=== PATIENT | male | born 1960 | race Caucasian/White ===

== ENCOUNTER 2022-03-07 09:12 | Inpatient (IN) | payer MEDICARE, MEDICAID, SELFPAY ==
[2022-03-07] VITALS (11 sets, daily range): BP systolic 110–138; BP diastolic 80–100; PULSE 89–117; RESP 18–26; TEMP 36.2–36.9; O2SAT 91–97; BMI 21.2
--- NOTE | 2022-03-07 09:40 | XR_ITS ---
WS: [id number] XR chest 1V portable [id number] REASON FOR EXAM: sob FINDINGS: Hyperexpanded lung field suggesting obstructive lung disease. Hiatal hernia. Normal heart size and thoracic aorta. Calcified granulomatous disease bilaterally. Compared to the previous examination of 01/03/2018, the multiple vague densities are not identified on the current study. No definite acute pulmonary parenchymal pleural abnormality is identified. XR/XR chest 1V portable [id number] IMPRESSION: Probable obstructive lung disease without acute abnormality.
--- NOTE | 2022-03-07 10:55 | ECG_ITS ---
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 Measurements Intervals [place] Rate: 102 P: 88 GA: 227 QRS: -59 QRSD: 106 T: 59 QT: 334 QTc: 435 Interpretive Statements SINUS TACHYCARDIA WITH FIRST DEGREE AV BLOCK LEFT AXIS DEVIATION [QRS AXIS < -30] LOW QRS VOLTAGE IN EXTREMITY LEADS [QRS DEFLECTION < 0.5 mV IN LIMB LEADS] INFERIOR MYOCARDIAL INFARCTION , PROBABLY OLD [40+ ms Q WAVE AND/OR ST/T ABNORMALITY IN II/aVF] No previous ECG available for comparison Electronically Signed On 03-07-2022 21:37:19 CDT by Sun Benavides M.D. [email or web address] memorial [email or web address]/store/OM/[id number]
--- NOTE | 2022-03-07 10:56 | W.ED.SOB ---
HPI - SOB/Dyspnea General: Chief Complaint: Shortness of Breath/Dyspnea Stated Complaint: SOB/weakness/no appetite/ Time Seen by Provider: 03/07/22 10:49 Source: patient Mode of arrival: ambulatory Limitations: no limitations History of Present Illness: HPI Narrative: Patient is a nice 61-year-old male who presents to ED today with a main complaint of dyspnea over the past 4 days. Patient tells me he does have a history of COPD that he normally treats with Combivent and Advair. He states he normally does not require oxygen. He states over the past 4 days he has noticed profound dyspnea worse with even minimal exertion. He states he is unable to eat or sleep secondary to the work of breathing. He does not describe any chest pains or any other pain/discomfort. He has not noticed any swelling to his lower extremities. Patient is an every day smoker. He states apart from the COPD he is fairly healthy . He does describe a productive cough. No hemoptysis. MD elicited complaint: shortness of breath Pertinent past history: COPD Onset (ago): day(s) Timing: constant Severity: moderate Exacerbating factors: exertion Relieving factors: nothing Known history of: COPD Associated symptoms: Reports chest congestion and dizziness; Deny abdominal pain, chest pain, fever(s), hemoptysis, lightheadedness, nausea, palpitations, syncope or vomiting Treatment prior to arrival: none Related Data: Home oxygen amount: none Review of Systems Const: Reports: chills; Denies: fever(s), body aches, fatigue or malaise Eyes: Denies: change in vision or blurry vision ENMT: Denies: throat pain, odynophagia, nasal discharge or nasal congestion Card: Reports: dyspnea on exertion; Denies: chest pain, palpitations, irregular heart rhythm, edema, swelling of feet/ankles, lightheadedness, syncope, pre-syncope, leg pain with exertion or acrocyanosis Resp: Reports: dyspnea, productive cough and chest congestion; Denies: wheezing, stridor, pain on inspiration or hemoptysis GI: Denies: abdominal pain, nausea, vomiting, heartburn or diarrhea : Denies: flank pain, difficulty urinating or dysuria Musc: Denies: neck pain, back pain or joint pain Skin/Breast: Denies: rash Neuro: Reports: dizziness; Denies: headache(s), numbness in extremities, weakness in extremities, sensory changes, lack of coordination, difficulty walking or confusion PFSH ED PFSH: Medical History COPD (chronic obstructive pulmonary disease) CVA (cerebral vascular accident) Depression GERD (gastroesophageal reflux disease) OA (osteoarthritis) Smoking addiction Family History (Updated 03/07/22 @ 14:07 by Dav Spencer MD) Other Suicide Social History (Updated 03/07/22 @ 14:09 by Dav Spencer MD) Smoking and tobacco status: current every day smoker Physical Exam Const: COMMON NORMALS: patient oriented x3, no limitations and alert GENERAL APPEARANCE: cooperative and in distress (visibly short of breath) ORIENTATION/CONSCIOUSNESS: Yes awake, Yes oriented to person, Yes oriented to place and Yes oriented to time HENMT: COMMON NORMALS: normocephalic and atraumatic HEAD & SCALP: normal to inspection, normocephalic and atraumatic Chest: COMMONS NORMALS: normal inspection of the chest and normal palpation of entire chest wall Resp: EFFORT & INSPECTION: Yes tachypneic, Yes labored and Yes uses accessory muscles AUSCULTATION: rhonchi (throughout all [place]) Cardio: COMMON NORMALS: regular rhythm RATE: tachycardic RHYTHM: regular rhythm GI: COMMON NORMALS: Normal to inspection, nondistended, normoactive bowel sounds present, Soft to palpation and non-tender PALPATION: Yes Soft to palpation Extremity: COMMON NORMALS: normal to inspection, capillary refill normal, no joint enlargement, no clubbing, cyanosis or edema, no calf tenderness and no pedal edema GENERAL: Yes normal exam except as noted Neuro: BAL COMA SCALE: document GCS findings [place] coma scale eye opening: Spontaneous [place] coma scale verbal response: Orientated [place] coma scale motor response: Obey commands Bal coma scale total score: 15 COMMON NORMALS: patient oriented x3, moves all extremities, no focal motor deficits and no sensory deficits noted SENSORIUM/ORIENTATION: Yes alert, Yes oriented to person, Yes oriented to place and Yes oriented to time Skin: COMMON NORMALS: no rashes or lesions noted GENERAL SKIN EXAM: no rashes or lesions noted Course Consultations: Consultation #1: Dr. Spencer-accepts for observation Vital Signs: Vital signs: Vital Signs Temperature 97.6 F 03/07/22 11:13 Pulse Rate 112 H 03/07/22 13:38 Respiratory Rate 22 H 03/07/22 13:38 Blood Pressure 110/80 03/07/22 13:38 Pulse Oximetry 95 03/07/22 13:38 MDM - SOB/Dyspnea Medical Decision Making Patient here with progressive dyspnea over the past 4 days to the point where patient states he is hardly able to get out of bed and walk around his home without becoming profoundly short of breath. Patient has remained tachycardic and tachypneic throughout his stay. He is not hypoxic. CXR shows COPD. He does have a mild white count at 12.4 with an elevated lactate at 2.5. D-dimer was elevated thus CTA imaging was obtained which showed scattered bilateral lung nodules that could be postinflammatory versus early metastatic lesions along with marked emphysema. Patient is an every day smoker. He feels slightly better after IV Solu-Medrol and DuoNeb here however lung sounds still with scattered diffuse wheezes/rhonchi and he visibly still has increased work of breathing. I spoke to Dr. Parekh who recommends admission. I spoke to Dr. Spencer who was agreeable to observation. I have started patient on IV Levaquin. Lab Data : 03/07/22 11:05 03/07/22 11:05 Labs/Radiology: Radiology Impressions Chest X-Ray 03/07/22 09:40 IMPRESSION: Probable obstructive lung disease without acute abnormality. Chest CTA 03/07/22 12:52 IMPRESSION: 1. No pulmonary embolism. 2. Scattered nodules throughout both lungs with tree-in-bud airspace disease and mild spiculations. May be postinflammatory or early metastatic lesions. The largest nodule measures 7 mm in the RIGHT lower lobe. Recommend follow-up chest CT in 3-4 months to confirm stability or improvement. 3. Marked emphysema. Laboratory Results WBC 12.4 10^3/uL (4.0-10.0) H 03/07/22 11:05 RBC 5.96 10^6/uL (4.1-5.3) H 03/07/22 11:05 Hgb 17.6 g/dL (11.7-16.6) H 03/07/22 11:05 Hct 52.9 % (42.0-52.0) H 03/07/22 11:05 MCV 88.8 fl (80-94) 03/07/22 11:05 MCH 29.5 pg (28.0-34.0) 03/07/22 11:05 MCHC 33.3 g/dL (30.0-36.0) 03/07/22 11:05 RDW 13.9 % (12.1-15.1) 03/07/22 11:05 Plt Count 340 10^3/cmm (130-400) 03/07/22 11:05 MPV 10.8 fL (7.4-10.4) H 03/07/22 11:05 Neut % (Auto) 78.9 % 03/07/22 11:05 Lymph % (Auto) 12.9 % 03/07/22 11:05 [place] % (Auto) 7.4 % 03/07/22 11:05 Eos % (Auto) 0.2 % 03/07/22 11:05 Baso % (Auto) 0.2 % 03/07/22 11:05 Neut # (Auto) 9.76 10^3/uL (1.8-7.7) H 03/07/22 11:05 Lymph # (Auto) 1.6 10^3/uL (0.8-4.8) 03/07/22 11:05 [place] # (Auto) 0.9 10^3/uL (0.2-0.9) 03/07/22 11:05 Eos # (Auto) 0.0 10^3/uL (0.0-0.8) 03/07/22 11:05 Baso # (Auto) 0.0 10^3/uL (0.0-0.1) 03/07/22 11:05 Nucleated RBC % (auto) 0 % 03/07/22 11:05 Nucleated RBCs # 0.0 /100WBC 03/07/22 11:05 D-Dimer 1.11 ug/mIFEU (0-0.59) H 03/07/22 12:20 Specimen Type Arterial 03/07/22 10:56 Sample Site Radial, right 03/07/22 10:56 ABG pH 7.44 (7.35-7.45) 03/07/22 10:56 ABG pCO2 31.7 mmHg (35-45) L 03/07/22 10:56 ABG pO2 76.4 mmHg (80.0-100.0) L 03/07/22 10:56 ABG HCO3 21.4 mmol/L (22-26) L 03/07/22 10:56 ABG O2 Saturation 94.7 03/07/22 10:56 ABG Base Excess -1.7 mmol/L (-2.0-2.0) 03/07/22 10:56 Cholo Test Pos 03/07/22 10:56 A-a O2 Gradient 4.2 mmHg (5-10) L 03/07/22 10:56 Hematocrit 51.7 % (42-52) 03/07/22 10:56 Hgb O2 Saturation 94.2 % (95-100) L 03/07/22 10:56 Carboxyhemoglobin < 0.0 %THgb (0.4-20.1) L 03/07/22 10:56 Methemoglobin 0.7 % (0.4-1.5) 03/07/22 10:56 Total Hemoglobin 16.9 g/dL (14-18) 03/07/22 10:56 Sodium 135.0 mmol/L (131-143) 03/07/22 10:56 Potassium 4.1 mmol/L (3.5-5.0) 03/07/22 10:56 Glucose 109.0 mg/dL (70-115) 03/07/22 10:56 Ionized Calcium 1.2 mmol/L (1.1-1.4) 03/07/22 10:56 O2 Delivery Device Room air 03/07/22 10:56 FiO2 21.0 % 03/07/22 10:56 Assistant Women'S Basketball Coach ID Ed 03/07/22 10:56 Sodium 132 mmol/L (136-145) L 03/07/22 11:05 Potassium 4.6 mmol/L (3.5-5.1) 03/07/22 11:05 Chloride 90 mmol/L (98-107) L 03/07/22 11:05 Carbon Dioxide 23 mmol/L (22-29) 03/07/22 11:05 Anion Gap 23.6 (5-19) H 03/07/22 11:05 BUN 31 mg/dL (8-23) H 03/07/22 11:05 Creatinine 1.1 mg/dL (0.7-1.2) 03/07/22 11:05 GFR Calculation 67.6 mL/min (90-130) L 03/07/22 11:05 Glucose 105 mg/dL (65-115) 03/07/22 11:05 Calculated Osmolality 281 mOsm/kg (285-295) L 03/07/22 11:05 Lactic Acid 2.5 mmol/L (0.5-2.2) H 03/07/22 11:05 Lactic Acid (Sepsis) 2.1 mmol/L (0.5-2.2) 03/07/22 13:52 Calcium 10.3 mg/dL (8.5-10.5) 03/07/22 11:05 Total Bilirubin 0.5 mg/dL (0.15-1.2) 03/07/22 11:05 AST 24 U/L (0-40) 03/07/22 11:05 ALT 14 U/L (0-41) 03/07/22 11:05 Alkaline Phosphatase 59 IU/L (40-130) 03/07/22 11:05 Troponin T Baseline 20 ng/L (0-15) H 03/07/22 11:05 Troponin T 120 Minute 17.93 ng/L (0-15) H 03/07/22 12:54 Delta Troponin T -2.07 ABS# (0-10) L 03/07/22 12:54 NT-Pro-B Natriuret Pep 801 pg/mL (0-125) H 03/07/22 11:05 Total Protein 9.5 g/dL (6.6-8.7) H 03/07/22 11:05 Albumin 4.4 g/dL (3.5-5.2) 03/07/22 11:05 Globulin 5.1 g/dL (1.3-4.6) H 03/07/22 11:05 Procalcitonin 0.43 ng/mL (0-0.5) 03/07/22 11:05 Discharge Plan Discharge Patient Disposition: Placed in Observation Clinical Impression: Acute exacerbation of chronic obstructive airways disease, Current smoker Coding Level of Care Code ED Chain Hoist Operator for Nikitag Fwd Exam Comprehensive
[2022-03-07 11:07] LABS: ABG PCO2 31.7 mmHg (35-45); ABG PH Result 7.44 (7.35-7.45); Alveolar-Arterial Oxygen Gradi 4.2 mmHg (5-10); Arterial Blood Gas Hematocrit 51.7 % (42-52); Base Excess ABG -1.7 mmol/L (-2.0-2.0); Blood Gas Allen Test Pos; Blood Gas Operator Identificat ED; Blood Gas Sample Site Radial, right; Blood Gas Sample Type Arterial; Carboxyhemoglobin < 0.0 %THgb (0.4-20.1); HCO3 ABG 21.4 mmol/L (22-26); HGB O2 Sat 94.2 % (95-100); Ionized Calcium Level - ABG 1.2 mmol/L (1.1-1.4); Methemoglobin 0.7 % (0.4-1.5); Oxygen Device ROOM AIR; Oxygen Saturation ABG 94.7; PO2 ABG 76.4 mmHg (80.0-100.0); Potassium Level - ABG 4.1 mmol/L (3.5-5.0); Total Hemoglobin 16.9 g/dL (14-18)
[2022-03-07] MEDS: ipratropium-albuterol 3 mL Neb INHALATION ×3 (11:10→20:01)
[2022-03-07 11:32] LABS: Basophils % 0.2 %; Eosinophils % 0.2 %; Hematocrit 52.9 % (42.0-52.0); Hemoglobin 17.6 g/dL (11.7-16.6); Lymphocytes # 1.6 10^3/uL (0.8-4.8); Lymphocytes % 12.9 %; Mean Corpuscular HGB Conc 33.3 g/dL (30.0-36.0); Mean Corpuscular Hemoglobin 29.5 pg (28.0-34.0); Mean Corpuscular Volume 88.8 fl (80-94); Mean Platelet Volume 10.8 fL (7.4-10.4); Monocytes # 0.9 10^3/uL (0.2-0.9); Monocytes % 7.4 %; Neutrophils # 9.76 10^3/uL (1.8-7.7); Neutrophils % 78.9 %; Nucleated Red Blood Cells % 0 %; Platelet Count 340 10^3/cmm (130-400); Red Blood Count 5.96 10^6/uL (4.1-5.3); Red Cell Distribution Width 13.9 % (12.1-15.1); White Blood Count 12.4 10^3/uL (4.0-10.0)
[2022-03-07 12:02] LABS: Troponin(5th) Baseline 20 ng/L (0-15)
[2022-03-07 12:03] LABS: Lactic Sepsis W/Reflex 2.5 mmol/L (0.5-2.2)
[2022-03-07 12:14] LABS: NT Pro B Type Natriuretic Pept 801 pg/mL (0-125); Procalcitonin 0.43 ng/mL (0-0.5)
[2022-03-07 12:25] LABS: Alanine Aminotransferase 14 U/L (0-41); Albumin Level 4.4 g/dL (3.5-5.2); Alkaline Phosphatase 59 IU/L (40-130); Anion Gap 23.6 (5-19); Aspartate Amino Transferase 24 U/L (0-40); Blood Urea Nitrogen 31 mg/dL (8-23); Calcium 10.3 mg/dL (8.5-10.5); Carbon Dioxide 23 mmol/L (22-29); Chloride 90 mmol/L (98-107); Globulin 5.1 g/dL (1.3-4.6); Glomerular Filtration Rate 67.6 mL/min (90-130); Glucose 105 mg/dL (65-115); Osmolality Calculated 281 mOsm/kg (285-295); Potassium 4.6 mmol/L (3.5-5.1); Sodium 132 mmol/L (136-145); Total Bilirubin 0.5 mg/dL (0.15-1.2); Total Protein 9.5 g/dL (6.6-8.7)
[2022-03-07 12:46] LABS: D Dimer 1.11 ug/mIFEU (0-0.59)
--- NOTE | 2022-03-07 12:52 | CT_ITS ---
WS: [id number] CT CHEST ANGIOGRAPHY WITH REFORMATS HISTORY: dyspnea; tachycardia; elevated d dimer TECHNIQUE: Contiguous axial images are obtained through the chest during arterial injection of intrav enous contrast. Images are reconstructed to evaluate the pulmonary arteries. MIP imaging also reviewe d. All CT scans at [facility] use at least one of these dose optimization techniques: automat ed exposure control; mA and/or kV adjustment per patient size (includes targeted exams where dose is matched to clinical indication); or iterative reconstruction. CONTRAST: Omnipaque 300; 95 mL IV. DLP: 481.98 mGy.cm COMPARISON: None available. Very good opacification of the pulmonary arteries. No pulmonary embolism is identified. Opacification is very good through the lobar and some of the segmental branches. Normal size artery. Mild atherosc lerotic changes of aorta. No mediastinal or hilar adenopathy. Large hiatal hernia. Severe chronic emphysema with mild thickening of the peripheral airways. No mass. There is mild tree- in-bud airspace disease in the RIGHT lower lobe subsolid nodule measuring 7 mm in the RIGHT lower lob e. Significant motion artifact through the abdomen. There is tricuspid regurgitation. Indeterminate for LEFT adrenal nodule. Mild increase in the thoracic kyphosis. CT/CT angio chest PE protcl [id number] IMPRESSION: 1. No pulmonary embolism. 2. Scattered nodules throughout both lungs with tree-in-bud airspace disease a nd mild spiculations. May be postinflammatory or early metastatic lesions. The largest nodule measures 7 mm in the RIGHT lower lobe. Recommend follow-up chest CT in 3-4 months to confirm stability or improvement. 3. Marked emphysema.
--- NOTE | 2022-03-07 12:55 | ECG_ITS ---
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 Measurements Intervals [place] Rate: 115 P: -31 FL: 197 QRS: -86 QRSD: 114 T: 61 QT: 332 QTc: 461 Interpretive Statements SINUS TACHYCARDIA LEFT ANTERIOR FASCICULAR BLOCK [QRS AXIS <= -45, QR IN I, RS IN II] INFERIOR MYOCARDIAL INFARCTION , PROBABLY OLD [40+ ms Q WAVE AND/OR ST/T ABNORMALITY IN II/aVF] ANTEROLATERAL MYOCARDIAL INFARCTION , PROBABLY RECENT [40+ ms Q WAVE IN I/aVL/V3-V6] ACUTE AK Compared to ECG 03/07/2022 11:17:59 Left anterior fascicular block now present First degree AV block no longer present Left-axis deviation no longer present Myocardial infarct finding still present Electronically Signed On 03-07-2022 21:41:50 CDT by Sun Benavides M.D. [id number]
[2022-03-07] MEDS: levofloxacin-dextrose 5 % 500 MG/100 ML PREMIX 100 MG IV (13:01)
[2022-03-07 13:13] LABS: Reflex Lactate Order REFLEX LACTIC ORDERD
[2022-03-07] MEDS: iohexol 300 mg/mL 100 mL Btl IV (13:17)
[2022-03-07 13:27] LABS: Troponin 5 2HR 17.93 ng/L (0-15); Troponin 5 2HR Delta -2.07 ABS# (0-10)
[2022-03-07 14:16] LABS: Lactic Acid level (Lactate) 2.1 mmol/L (0.5-2.2)
[2022-03-07] MEDS: sodium chloride 0.9% 1,000 ML 125 ML IV ×2 (15:51→23:49)
[2022-03-07 15:53] LABS: Adenovirus Not Detected (NOT DETECT); Chlamydia Pneumoniae Not Detected (NOT DETECT); Coronavirus 229E,HKU1,NL63,OC4 Not Detected (NOT DETECT); Human Metapneumovirus Not Detected (NOT DETECT); Human Rhinovirus/Enterovirus Not Detected (NOT DETECT); Influenza A Not Detected (NOT DETECT); Influenza A H1 Not Detected (NOT DETECT); Influenza A H1-2009 Not Detected (NOT DETECT); Influenza A H3 Not Detected (NOT DETECT); Influenza B Not Detected (NOT DETECT); Mycoplasma Pneumoniae Not Detected (NOT DETECT); Parainfluenza Virus Type 1 Not Detected (NOT DETECT); Parainfluenza Virus Type 2 Not Detected (NOT DETECT); Parainfluenza Virus Type 3 Detected (NOT DETECT); Parainfluenza Virus Type 4 Not Detected (NOT DETECT); Respiratory Syncytial Virus A Not Detected (NOT DETECT); Respiratory Syncytial Virus B Not Detected (NOT DETECT); SARS-COV-2 Not Detected (NOT DETECT)
[2022-03-07 16:03] LABS: Parainfluenza Virus Type 1 Not Detected (NOT DETECT); Parainfluenza Virus Type 2 Not Detected (NOT DETECT); Parainfluenza Virus Type 3 Detected (NOT DETECT); Parainfluenza Virus Type 4 Not Detected (NOT DETECT); Results from Genmark
--- NOTE | 2022-03-07 16:55 | ECG_ITS ---
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 Measurements Intervals [place] Rate: P: MT: QRS: QRSD: T: QT: QTc: Interpretive Statements Regular supraventricular rhythm. Possible old inferior wall AR WARNING: DATA QUALITY MAY AFFECT INTERPRETATION Compared to ECG 03/07/2022 14:34:24 Sinus tachycardia no longer present Left anterior fascicular block no longer present Myocardial infarct finding no longer present Electronically Signed On 03-07-2022 21:46:29 CDT by Sun Benavides M.D. [email or web address]/store/[id number]
[2022-03-07 17:39] LABS: Troponin 5 6HR 13.12 ng/L (0-15)
--- NOTE | 2022-03-07 17:48 | P.HP_ITS ---
Providers/Chief Complaint Admitting Physician: Dav Spencer Primary Care Provider: FELICITA Flannery Chief Complaint: SOB/weakness/no appetite/ History of Present Illness Pleasant 61-year-old gentleman smoker, states has been trying to quit in the last 2 weeks, has been having progressive shortness of breath over the last 4 days, cough productive of yellow sputum, progressive easy fatigability, now getting tired with ambulating short distances, reporting dyspnea, panting, as well as nausea, dry heaves, reports has not eaten in 4 days. And some chills. Has not measured his temperature. In ER noted saturating in the low 90s on room air. Not normally on supplemental oxygen. With abnormal lung sounds, received Solu-Medrol, breathing treatment, Levaquin, with some mild improvement, but persistent adventitious lung sounds, sinus tachycardia. Saturations in mid 90s. ABG 7.4/31.7/76.2. Chest x-ray with COPD. D-dimer noted abnormal, underwent additional assessment by CTA, without PE, with scattered nodules throughout the lungs on both sides, tree-in-bud airspace disease and mild spiculations. Possibly postinflammatory or early metastatic lesions. Largest nodule 7 mm right lower lobe. Recommended follow-up CT in 3-4 months to confirm stability or improvement. Marked emphysema. Viral PCR negative for COVID-19, positive for parainfluenza 3. Review of Systems Const: Reports: chills, change in appetite and malaise Eyes: Denies: change in vision, eye discomfort or eye redness ENMT: Denies: throat pain, oral sores or ear or mastoid pain Card: Reports: dyspnea on exertion; Denies: chest pain, edema or pre-syncope Resp: Reports: dyspnea, productive cough and change in phlegm color; Denies: hemoptysis GI: Reports: nausea; Denies: abdominal pain, vomiting, diarrhea, constipation, hematochezia or melena : Denies: flank pain, difficulty urinating, urinary frequency or hematuria Musc: Denies: back pain, joint swelling or joint redness Skin/Breast: Denies: rash or new lesions Neuro: Denies: headache(s), numbness in extremities, weakness in extremities, dizziness, confusion or seizure-like activity Endo: Denies: polyuria or polydipsia Alan/Lymph: Denies: easy bleeding or tender lymph nodes All/Imm: Denies: urticaria or tongue swelling Medications/Allergies Home Medications Medication Instructions Recorded Confirmed Last Taken Type albuterol sulfate 90 mcg/actuation 2 puff INHALATION Q4H PRN 03/07/22 03/07/22 03/06/22 History aerosol inhaler fluticasone 500 mcg-salmeterol 50 1 inh INHALATION Q12H 03/07/22 03/07/22 03/06/22 History mcg/dose blistr powdr for inhalation (Advair Diskus) omeprazole 40 mg capsule,delayed 40 mg PO DAILY 03/07/22 03/07/22 03/06/22 History release Allergies Allergy/AdvReac Type Severity Reaction Status Date / Time codeine Allergy ADR-Gastrointestinal Verified 03/07/22 14:07 Upset PFSH Acute PFSH: Medical History COPD (chronic obstructive pulmonary disease) CVA (cerebral vascular accident) Depression GERD (gastroesophageal reflux disease) OA (osteoarthritis) Smoking addiction Surgical History No pertinent past surgical history Family History Mother Diabetes Other Suicide Social History (Updated 03/07/22 @ 18:02 by Dav Spencer MD) Smoking and tobacco status: current every day smoker Quit status (tobacco): considering quitting Marital status: Vitals/I&O/Wt Last Vital Signs Temp 97.6 F 03/07/22 11:13 Pulse 115 H 03/07/22 17:32 Resp 22 H 03/07/22 17:27 BP 110/80 03/07/22 15:28 Pulse Ox 95 03/07/22 17:27 03/07/22 03/07/22 03/07/22 06:59 14:59 22:59 Intake Total 100 / 100 Balance 100 / 100 Weight last 48 hrs Weight 63.503 kg Weight 63.503 kg Physical Exam Const: COMMON NORMALS: alert GENERAL APPEARANCE: cooperative ORIENTATION/CONSCIOUSNESS: Yes awake HENMT: COMMON NORMALS: normocephalic, EAC's normal, Normal external nose present and moist oral mucous membranes HEAD & SCALP: normocephalic NOSE: Normal external nose present EXTERNAL AUDITORY CANAL: EAC's normal Neck/C-Spine: COMMON NORMALS: no meningeal signs Chest: CHEST: Yes Symmetrical chest wall rise Resp: AUSCULTATION: wheezes and diminished lung sounds Cardio: COMMON NORMALS: regular rate, regular rhythm and No murmurs present (Cardio) RATE: regular rate RHYTHM: regular rhythm GI: COMMON NORMALS: Normal to inspection, nondistended, normoactive bowel sounds present, Soft to palpation and non-tender PALPATION: Yes Soft to palpation Extremity: COMMON NORMALS: no pedal edema Neuro: COMMON NORMALS: moves all extremities SENSORIUM/ORIENTATION: Yes alert MENINGEAL SIGNS: Yes no meningeal signs Psych: COMMON NORMALS: mental status grossly normal Skin: COMMON NORMALS: no wounds RASHES: no rashes Data : 03/07/22 11:05 03/07/22 11:05 Micro: Microbiology 03/07/22 11:38 Gram Stain - Final Sputum - Expectorated Sputum 03/07/22 11:38 Blood Culture - Preliminary Blood SPECIMEN COLLECTED 03/07/22 11:05 Blood Culture - Preliminary Blood SPECIMEN COLLECTED A&P Assessment and plan (1) Acute exacerbation of chronic obstructive airways disease: Severe COPD exacerbation with cough, dyspnea, wheezing/diminished air entry, yellow/purulent sputum. Oxygen saturation low 90s. Secondary to preop for his infection. However, with sputum discoloration, procalcitonin 0.43, will additionally provide antibiotic coverage for possible superimposed bacterial infection. Sputum culture has been requested. Continue IV steroids with Solu-Medrol. Breathing treatments. Mucinex, flutter valve. Status: Acute (2) Infection due to parainfluenza virus 3: As above. Maintain isolation precautions. Status: Acute (3) Lung nodules: Multiple lung nodules, largest 7 mm, will need follow-up. Possible postinflammatory. Cannot exclude early metastatic malignant disease. Status: Acute (4) Smoking addiction: Reports that he has been trying to quit smoking as of 2 weeks ago. Smoked for 50 years. Discussed medical cessation for 4 minutes. Continue daily replacement with patches, lozenges. Continue to encourage cessation Status: Acute (5) Elevated d-dimer: No PE. Possibly secondary to acute viral infection. DVT prophylaxis. Status: Acute (6) Troponin level elevated: No chest pain or pressure. Mild elevation of troponin. Appears to have Q waves in the 3-V6. Also Q waves inferiorly. Long-term smoker. May benefit from risk stratification, continued optimization of cardiovascular risk factors. Complete troponin and EKG series. Status: Acute Attestations Medical Necessity Statement*: Place in observation for additional assessment of management of severe COPD exacerbation. Coding Level of Care Code Acute Front End Ui Developer for Chg Fwd Diagnoses Acute exacerbation of chronic obstructive airways disease J44.1 Smoking addiction F17.200 Lung nodules R91.8 Infection due to parainfluenza virus 3 B34.8 Elevated d-dimer R79.89 Troponin level elevated R77.8
[2022-03-07] MEDS: nicotine 21 mg Patch 1 PATCH TRANSDERMA (18:11)
[2022-03-07] MEDS: guaiFENesin 600 mg Tablet PO (18:11)
[2022-03-08] VITALS (11 sets, daily range): BP systolic 127–165; BP diastolic 66–105; PULSE 73–102; RESP 16–28; TEMP 36.2–37.2; O2SAT 94–97
[2022-03-08] MEDS: ipratropium-albuterol 3 mL Neb INHALATION ×4 (03:02→20:52)
[2022-03-08 06:29] LABS: Basophils % 0.2 %; Hematocrit 43.3 % (42.0-52.0); Hemoglobin 14.1 g/dL (11.7-16.6); Lymphocytes # 0.9 10^3/uL (0.8-4.8); Lymphocytes % 14.7 %; Mean Corpuscular HGB Conc 32.6 g/dL (30.0-36.0); Mean Corpuscular Hemoglobin 29.7 pg (28.0-34.0); Mean Corpuscular Volume 91.2 fl (80-94); Monocytes # 0.1 10^3/uL (0.2-0.9); Monocytes % 1.9 %; Neutrophils # 5.13 10^3/uL (1.8-7.7); Neutrophils % 82.9 %; Nucleated Red Blood Cells % 0 %; Platelet Count 240 10^3/cmm (130-400); Red Blood Count 4.75 10^6/uL (4.1-5.3); Red Cell Distribution Width 13.8 % (12.1-15.1); White Blood Count 6.2 10^3/uL (4.0-10.0)
[2022-03-08 06:45] LABS: Blood Urea Nitrogen 25 mg/dL (8-23); Calcium 9.1 mg/dL (8.5-10.5); Carbon Dioxide 23 mmol/L (22-29); Chloride 97 mmol/L (98-107); Glomerular Filtration Rate 97.6 mL/min (90-130); Glucose 139 mg/dL (65-115); Osmolality Calculated 279 mOsm/kg (285-295); Sodium 131 mmol/L (136-145)
[2022-03-08 06:49] LABS: Anion Gap 16.2 (5-19); Potassium 5.2 mmol/L (3.5-5.1)
--- NOTE | 2022-03-08 07:25 | PC.NURSE ---
I reported the high bp to the nurse. 158/104 165/105
[2022-03-08] MEDS: guaiFENesin 600 mg Tablet PO ×2 (08:49→17:06)
[2022-03-08] MEDS: sodium chloride 0.9% 1,000 ML 125 ML IV (08:49)
[2022-03-08] MEDS: nicotine 21 mg Patch 1 PATCH TRANSDERMA (13:29)
[2022-03-08] MEDS: levofloxacin-dextrose 5 % 500 MG/100 ML PREMIX 100 MG IV (13:29)
--- NOTE | 2022-03-08 14:02 | PM.PN ---
Subjective Subjective: Feeling breathing better. Still getting quite worn out when walking to and from the bathroom. Reportedly was feeling so weak that he fell down, so far having had several falls as per his life partner (on speaker phone), including he reports 1 in the hospital this morning causing some bruising of his right forearm. Reports today for the first time he is breakfast. Reports no further nausea, no vomiting. Vitals/I&O/Wt Last Vital Signs Temp 98.3 F 03/08/22 11:11 Pulse 94 03/08/22 11:11 Resp 28 H 03/08/22 11:11 BP 165/101 03/08/22 11:11 Pulse Ox 94 03/08/22 11:11 03/07/22 03/08/22 03/08/22 22:59 06:59 14:59 Intake Total 100 / 100 1000 / 1100 1360 / 1360 Balance 100 / 100 1000 / 1100 1360 / 1360 Weight last 48 hrs Weight 63.503 kg Weight 63.503 kg Physical Exam Const: COMMON NORMALS: alert GENERAL APPEARANCE: cooperative ORIENTATION/CONSCIOUSNESS: Yes awake HENMT: COMMON NORMALS: normocephalic, EAC's normal, Normal external nose present and moist oral mucous membranes HEAD & SCALP: normocephalic NOSE: Normal external nose present EXTERNAL AUDITORY CANAL: EAC's normal Neck/C-Spine: COMMON NORMALS: no meningeal signs Chest: CHEST: Yes Symmetrical chest wall rise Resp: AUSCULTATION: diminished lung sounds Cardio: COMMON NORMALS: regular rate, regular rhythm and No murmurs present (Cardio) RATE: regular rate RHYTHM: regular rhythm GI: COMMON NORMALS: Normal to inspection, nondistended, normoactive bowel sounds present, Soft to palpation and non-tender PALPATION: Yes Soft to palpation Extremity: COMMON NORMALS: no pedal edema Neuro: COMMON NORMALS: moves all extremities SENSORIUM/ORIENTATION: Yes alert MENINGEAL SIGNS: Yes no meningeal signs Psych: COMMON NORMALS: mental status grossly normal Skin: COMMON NORMALS: no wounds GENERAL SKIN EXAM: ecchymosis (Forearms, including at site of IV, as well as sm on post frearm after fall ) RASHES: no rashes Data : 03/08/22 Unknown 03/08/22 Unknown Micro: Microbiology 03/07/22 11:38 Gram Stain - Final Sputum - Expectorated Sputum Sputum Culture - Preliminary 03/07/22 11:38 Blood Culture - Preliminary Blood NEGATIVE TO DATE 03/07/22 11:05 Blood Culture - Preliminary Blood NEGATIVE TO DATE A&P Assessment and plan (1) Acute exacerbation of chronic obstructive airways disease: With mild improvement, he sounds better, still diminished air entry but no wheezing today, no rhonchi. Subjectively feels slightly better. Oxygenation remains good on room air at rest, but still with significant exertional intolerance. Got very worn out walking to the restroom and back, and reports fell down. Continue IV steroids for now. Continue to monitor, breathing treatments. Discussed with him also concerning nodularity seen in the lungs which will need additional follow-up. Mucinex, flutter valve. Status: Acute (2) Physical deconditioning: Several falls recently, including 1 in the hospital. Gets worn out and weak easily with exertion. Continue patient treatment for now given exertional intolerance with short distances. Requesting PT assessment. Status: Acute (3) Infection due to parainfluenza virus 3: As above. Maintain isolation precautions. Status: Acute (4) Lung nodules: Multiple lung nodules, largest 7 mm, will need follow-up. Possible postinflammatory. Cannot exclude early metastatic malignant disease. Discussed with him and his significant other. Will need follow-up, discussed consideration of follow-up with pulmonology. Status: Acute (5) Smoking addiction: Reports that he has been trying to quit smoking as of 2 weeks ago. Smoked for 50 years. Discussed medical cessation for 4 minutes. Continue daily replacement with patches, lozenges. Continue to encourage cessation Status: Acute (6) Elevated d-dimer: No PE. Possibly secondary to acute viral infection. DVT prophylaxis. Status: Acute (7) Troponin level elevated: No chest pain or pressure. Mild elevation of troponin. Appears to have Q waves in the 3-V6. Also Q waves inferiorly. Long-term smoker. May benefit from risk stratification, continued optimization of cardiovascular risk factors. Troponin mildly elevated, series without rise, but with mild decrease. Status: Acute Plan Hyperkalemia: Mild. Change to low potassium diet. Attestations Medical Necessity Statement*: Continue hospitalization versus management of COPD distribution with severe exertional intolerance resulting in falls. Coding Level of Care Code Acute Residence Life Coordinator for Jeremiah Fwd Exam Comprehensive Diagnoses Acute exacerbation of chronic obstructive airways disease J44.1 Infection due to parainfluenza virus 3 B34.8 Lung nodules R91.8 Smoking addiction F17.200 Elevated d-dimer R79.89 Troponin level elevated R77.8 Physical deconditioning R53.81
--- NOTE | 2022-03-08 18:02 | PC.NURSE ---
asked patient about fall he reported to physician, patient stated that he got up and felt dizzy and stumbled into the bedside table then sat back down. when asked if he fell onto the floor patient stated no.
[2022-03-09] VITALS (9 sets, daily range): BP systolic 147–178; BP diastolic 90–95; PULSE 70–109; RESP 18–28; TEMP 36.3–36.9; O2SAT 91–97
[2022-03-09] MEDS: ipratropium-albuterol 3 mL Neb INHALATION ×3 (03:39→14:40)
--- NOTE | 2022-03-09 05:44 | NUR.SHIFT ---
No distress this shift. Patient continues to refuse SQ heparin injections. Remains on room air, with audible expiratory wheezes noted. Also continues to decline changing into gown rather than street clothes.
[2022-03-09 07:05] LABS: Basophils % 0.1 %; Hematocrit 43.9 % (42.0-52.0); Hemoglobin 14.1 g/dL (11.7-16.6); Lymphocytes # 1.1 10^3/uL (0.8-4.8); Lymphocytes % 8.4 %; Mean Corpuscular HGB Conc 32.1 g/dL (30.0-36.0); Mean Corpuscular Hemoglobin 29.2 pg (28.0-34.0); Mean Corpuscular Volume 90.9 fl (80-94); Mean Platelet Volume 11.6 fL (7.4-10.4); Monocytes # 0.3 10^3/uL (0.2-0.9); Monocytes % 2.4 %; Neutrophils # 11.63 10^3/uL (1.8-7.7); Neutrophils % 88.5 %; Nucleated Red Blood Cells % 0 %; Platelet Count 249 10^3/cmm (130-400); Red Blood Count 4.83 10^6/uL (4.1-5.3); White Blood Count 13.1 10^3/uL (4.0-10.0)
[2022-03-09 07:34] LABS: Blood Urea Nitrogen 24 mg/dL (8-23); Calcium 9.3 mg/dL (8.5-10.5); Carbon Dioxide 24 mmol/L (22-29); Chloride 102 mmol/L (98-107); Glomerular Filtration Rate 113.9 mL/min (90-130); Glucose 130 mg/dL (65-115); Osmolality Calculated 288 mOsm/kg (285-295); Sodium 136 mmol/L (136-145)
[2022-03-09 07:42] LABS: Anion Gap 14.4 (5-19); Potassium 4.4 mmol/L (3.5-5.1)
[2022-03-09] MEDS: guaiFENesin 600 mg Tablet PO (08:17)
[2022-03-09] MEDS: levofloxacin-dextrose 5 % 500 MG/100 ML PREMIX 100 MG IV (14:10)
--- NOTE | 2022-03-09 16:28 | PM.DCS ---
Discharge Providers Date of Admission: 03/08/22 16:38 Date of Discharge: March 09, 2022 Attending Provider at Admission: Dav Spencer Attending Provider at Discharge: Dav Spencer Primary Care Provider: FELICITA Flannery Diagnoses at Discharge Discharge Diagnosis (1) Acute exacerbation of chronic obstructive airways disease: Status: Acute (2) Physical deconditioning: Status: Acute (3) Infection due to parainfluenza virus 3: Status: Acute (4) Lung nodules: Status: Acute (5) Smoking addiction: Status: Acute (6) Elevated d-dimer: Status: Acute (7) Troponin level elevated: Status: Acute Reason for Visit Reason for Visit: SOB/weakness/no appetite/ Hospital Course Hospital Course Pleasant 61-year-old gentleman with history of COPD, CAD, depression, STEFANIA, OA, smoking addiction, has been trying to quit smoking the last 2 weeks, presented with progressive shortness of breath over the previous 4 days to the point of panting, exertional intolerance, productive cough, also with nausea, dry heaves, malaise, chills. In ER noted saturating in the low 90s on room air. Not normally on supplemental oxygen. With abnormal lung sounds, received Solu-Medrol, breathing treatment, Levaquin, with some mild improvement, but persistent adventitious lung sounds, sinus tachycardia. Saturations in mid 90s. ABG 7.4/31.7/76.2. Chest x-ray with COPD. D-dimer noted abnormal, underwent additional assessment by CTA, without PE, with scattered nodules throughout the lungs on both sides, tree-in-bud airspace disease and mild spiculations. Possibly postinflammatory or early metastatic lesions. Largest nodule 7 mm right lower lobe. Recommended follow-up CT in 3-4 months to confirm stability or improvement. Marked emphysema. Viral PCR negative for COVID-19, but positive for parainfluenza 3. Was maintained on isolation precautions. Treated with Levaquin for possible superimposed bacterial pneumonia with purulent sputum, COPD sedation, with IV steroids, breathing treatments, supportive measures for COPD exacerbation. Urination and mid to low 90s but on room air. Very deconditioned. Sputum culture with moderate mixed upper respiratory augie. Noted mild troponin elevation without uptrend, without suggestion of acute MD on EKG, with noted Q waves possible prior MD. He had no chest pain or pressure. Very deconditioned to the point of several falls recently as per his significant other, including 1 fall here in the hospital with bruising of her right forearm. He worked with physical therapy, although exertionally limited, and so a walker is requested for him. He otherwise will continue with home exercise program. With risk factors of CAD, mild troponin elevation, EKG abnormalities he is also referred for additional assessment by stress testing. After discharge he will complete antibiotic course with Levaquin, prednisone taper. A nebulizer is requested for him. He is referred for follow-up with pulmonology due to COPD, as well as lung nodules. Physical Exam Const: COMMON NORMALS: alert GENERAL APPEARANCE: cooperative ORIENTATION/CONSCIOUSNESS: Yes awake HENMT: COMMON NORMALS: normocephalic, EAC's normal, Normal external nose present and moist oral mucous membranes HEAD & SCALP: normocephalic NOSE: Normal external nose present EXTERNAL AUDITORY CANAL: EAC's normal Neck/C-Spine: COMMON NORMALS: no meningeal signs Chest: CHEST: Yes Symmetrical chest wall rise Resp: AUSCULTATION: diminished lung sounds and other (Minimal wheeze on R) Cardio: COMMON NORMALS: regular rate, regular rhythm and No murmurs present (Cardio) RATE: regular rate RHYTHM: regular rhythm GI: COMMON NORMALS: Normal to inspection, nondistended, normoactive bowel sounds present, Soft to palpation and non-tender PALPATION: Yes Soft to palpation Extremity: COMMON NORMALS: no pedal edema Neuro: COMMON NORMALS: moves all extremities SENSORIUM/ORIENTATION: Yes alert MENINGEAL SIGNS: Yes no meningeal signs Psych: COMMON NORMALS: mental status grossly normal Skin: COMMON NORMALS: no wounds GENERAL SKIN EXAM: ecchymosis (Forearms, including at site of IV, as well as sm on post frearm after fall ) RASHES: no rashes Discharge Data Studies Completed and Pending Completed Studies During Hospitalization Category Date Time Status CTA chest [CT angio chest PE protcl [id number]] Urgent Cat Scan 03/07/22 12:52 Completed XR chest 1V portable [id number] Urgent Exams 03/07/22 09:40 Completed Pending at discharge Category Date Time Status Basic Metabolic Panel AM LABS Lab 03/10/22 04:00 Ordered Blood Culture Stat Lab 03/07/22 11:38 Results Complete Blood Count w/Auto AM LABS Lab 03/10/22 04:00 Ordered Radiology Impressions Chest X-Ray 03/07/22 09:40 IMPRESSION: Probable obstructive lung disease without acute abnormality. Chest CTA 03/07/22 12:52 IMPRESSION: 1. No pulmonary embolism. 2. Scattered nodules throughout both lungs with tree-in-bud airspace disease and mild spiculations. May be postinflammatory or early metastatic lesions. The largest nodule measures 7 mm in the RIGHT lower lobe. Recommend follow-up chest CT in 3-4 months to confirm stability or improvement. 3. Marked emphysema. Laboratory Results WBC 13.1 10^3/uL (4.0-10.0) H 03/09/22 06:04 RBC 4.83 10^6/uL (4.1-5.3) 03/09/22 06:04 Hgb 14.1 g/dL (11.7-16.6) 03/09/22 06:04 Hct 43.9 % (42.0-52.0) 03/09/22 06:04 MCV 90.9 fl (80-94) 03/09/22 06:04 MCH 29.2 pg (28.0-34.0) 03/09/22 06:04 MCHC 32.1 g/dL (30.0-36.0) 03/09/22 06:04 RDW 14.0 % (12.1-15.1) 03/09/22 06:04 Plt Count 249 10^3/cmm (130-400) 03/09/22 06:04 MPV 11.6 fL (7.4-10.4) H 03/09/22 06:04 Neut % (Auto) 88.5 % 03/09/22 06:04 Lymph % (Auto) 8.4 % 03/09/22 06:04 [place] % (Auto) 2.4 % 03/09/22 06:04 Eos % (Auto) 0.0 % 03/09/22 06:04 Baso % (Auto) 0.1 % 03/09/22 06:04 Neut # (Auto) 11.63 10^3/uL (1.8-7.7) H 03/09/22 06:04 Lymph # (Auto) 1.1 10^3/uL (0.8-4.8) 03/09/22 06:04 [place] # (Auto) 0.3 10^3/uL (0.2-0.9) 03/09/22 06:04 Eos # (Auto) 0.0 10^3/uL (0.0-0.8) 03/09/22 06:04 Baso # (Auto) 0.0 10^3/uL (0.0-0.1) 03/09/22 06:04 Nucleated RBC % (auto) 0 % 03/09/22 06:04 Nucleated RBCs # 0.0 /100WBC 03/09/22 06:04 D-Dimer 1.11 ug/mIFEU (0-0.59) H 03/07/22 12:20 Specimen Type Arterial 03/07/22 10:56 Sample Site Radial, right 03/07/22 10:56 ABG pH 7.44 (7.35-7.45) 03/07/22 10:56 ABG pCO2 31.7 mmHg (35-45) L 03/07/22 10:56 ABG pO2 76.4 mmHg (80.0-100.0) L 03/07/22 10:56 ABG HCO3 21.4 mmol/L (22-26) L 03/07/22 10:56 ABG O2 Saturation 94.7 03/07/22 10:56 ABG Base Excess -1.7 mmol/L (-2.0-2.0) 03/07/22 10:56 Cholo Test Pos 03/07/22 10:56 A-a O2 Gradient 4.2 mmHg (5-10) L 03/07/22 10:56 Hematocrit 51.7 % (42-52) 03/07/22 10:56 Hgb O2 Saturation 94.2 % (95-100) L 03/07/22 10:56 Carboxyhemoglobin < 0.0 %THgb (0.4-20.1) L 03/07/22 10:56 Methemoglobin 0.7 % (0.4-1.5) 03/07/22 10:56 Total Hemoglobin 16.9 g/dL (14-18) 03/07/22 10:56 Sodium 135.0 mmol/L (131-143) 03/07/22 10:56 Potassium 4.1 mmol/L (3.5-5.0) 03/07/22 10:56 Glucose 109.0 mg/dL (70-115) 03/07/22 10:56 Ionized Calcium 1.2 mmol/L (1.1-1.4) 03/07/22 10:56 O2 Delivery Device Room air 03/07/22 10:56 FiO2 21.0 % 03/07/22 10:56 Boring And Filling Machine Operator ID Ed 03/07/22 10:56 Sodium 136 mmol/L (136-145) 03/09/22 06:04 Potassium 4.4 mmol/L (3.5-5.1) 03/09/22 06:04 Chloride 102 mmol/L (98-107) 03/09/22 06:04 Carbon Dioxide 24 mmol/L (22-29) 03/09/22 06:04 Anion Gap 14.4 (5-19) 03/09/22 06:04 BUN 24 mg/dL (8-23) H 03/09/22 06:04 Creatinine 0.7 mg/dL (0.7-1.2) 03/09/22 06:04 GFR Calculation 113.9 mL/min (90-130) 03/09/22 06:04 Glucose 130 mg/dL (65-115) H 03/09/22 06:04 Calculated Osmolality 288 mOsm/kg (285-295) 03/09/22 06:04 Lactic Acid 2.5 mmol/L (0.5-2.2) H 03/07/22 11:05 Lactic Acid (Sepsis) 2.1 mmol/L (0.5-2.2) 03/07/22 13:52 Calcium 9.3 mg/dL (8.5-10.5) 03/09/22 06:04 Total Bilirubin 0.5 mg/dL (0.15-1.2) 03/07/22 11:05 AST 24 U/L (0-40) 03/07/22 11:05 ALT 14 U/L (0-41) 03/07/22 11:05 Alkaline Phosphatase 59 IU/L (40-130) 03/07/22 11:05 Troponin T Baseline 20 ng/L (0-15) H 03/07/22 11:05 Troponin T 120 Minute 17.93 ng/L (0-15) H 03/07/22 12:54 Delta Troponin T -2.07 ABS# (0-10) L 03/07/22 12:54 Troponin T Hi Sens 6Hr 13.12 ng/L (0-15) 03/07/22 17:10 Troponin T Hi Sens 6Hr Delta -6.88 ng/L (0-12) L 03/07/22 17:10 NT-Pro-B Natriuret Pep 801 pg/mL (0-125) H 03/07/22 11:05 Total Protein 9.5 g/dL (6.6-8.7) H 03/07/22 11:05 Albumin 4.4 g/dL (3.5-5.2) 03/07/22 11:05 Globulin 5.1 g/dL (1.3-4.6) H 03/07/22 11:05 Procalcitonin 0.43 ng/mL (0-0.5) 03/07/22 11:05 Coronavirus 229E (PCR) Not detected (NOT DETECT) 03/07/22 14:06 Parainfluenza 1 (PCR) Not detected (NOT DETECT) 03/07/22 16:03 Parainfluenza 2 (PCR) Not detected (NOT DETECT) 03/07/22 16:03 Parainfluenza 3 (PCR) Detected (NOT DETECT) A 03/07/22 16:03 Parainfluenza 4 (PCR) Not detected (NOT DETECT) 03/07/22 16:03 SARS-CoV-2 (PCR) Not detected (NOT DETECT) 03/07/22 14:06 Vitals Last Vital Signs Temp 98.5 F 03/09/22 16:00 Pulse 92 03/09/22 16:00 Resp 18 03/09/22 16:00 BP 178/95 03/09/22 16:00 Pulse Ox 95 03/09/22 16:00 Discharge Plan Discharge Patient Disposition: Home Condition: Stable Prescriptions: New nicotine 21 mg/24 hr Patch 24 Hour 1 patch transdermal Q24H Qty: 28 3RF prednisone 10 mg tablet See Rx Instructions .ROUTE .COMPLEX Qty: 20 0RF Rx Instructions: 3 tab daily for 3 days, then 2 tab for 3 days, then 1 tab for 3 days, then 1/2 tab for 4 days. ipratropium-albuterol 0.5 mg-3 mg(2.5 mg base)/3 mL Solution For Nebulization 3 ml inhalation Q4H PRN (Reason: Shortness Of Breath) Qty: 90 0RF guaifenesin [Mucinex] 600 mg Tablet Extended Release 12hr 600 mg PO BID Qty: 30 0RF levofloxacin 500 mg tablet 500 mg PO DAILY 3 Days Qty: 3 0RF Continued omeprazole 40 mg Capsule,Delayed Release(Dr/Ec) 40 mg PO DAILY 0RF Advair Diskus 500-50 mcg/dose Blister With Device 1 inh INHALATION Q12H 0RF albuterol sulfate 90 mcg/actuation Hfa Aerosol Inhaler 2 puff INHALATION Q4H PRN (Reason: Shortness Of Breath) 0RF Discharge Orders: Discharge Order (Routine); Ordered 03/09/22 Ordered By: Dav Spencer Other Ambulatory Orders: Sestamibi Stress Test Request (Routine) Timeframe: 1 Week Facility: [facility] - Location: Cardiac Diagnostic Laboratory Ordered By: Dav Spencer DME: Nebulizer with Neb Kit (Order) Location: None Selected Ordered By: Dav Spencer DME: Walker (Order) Location: None Selected Ordered By: Dav Spencer Referrals: Alexa Carreno FNP [Primary Care Provider] - 4-7 days DatarSunny MD [Physician] - 04/04/22 9:30 am (Nodules, COPD) Discharge Diet: Cardiac Discharge Activity: Increase activity as tolerated, Use walker/crutches as instructed and As per PT/OT instructions Patient Instructions: Prednisone (By mouth), Levofloxacin (By mouth), Viral Pneumonia (GEN), How to Stop Smoking (GEN), Cigarette Smoking and Your Health (GEN), COPD (Chronic Obstructive Pulmonary Disease) (GEN), Pulmonary Nodules (GEN), Fall Prevention (GEN), Parainfluenza (GEN) Activity Restrictions/Additional Instructions: Complete antibiotic course and steroid taper for possible superimposed pneumonia, as well as for COPD sedation. You were found to have parainfluenza pneumonia. However, due to likely progression of COPD as well, please follow-up with pulmonology. Additionally please see the lung specialist due to lung nodules seen on CT of the chest, largest nodule 7 mm, which could be postinflammatory, but at this time malignancy cannot be excluded, and additional assessment will be needed. Please stop smoking. Use nicotine patch as to help you. Follow-up with your primary doctor for additional assistance. Please also follow-up with stress testing due to exertional intolerance, and noted mild elevation of level of heart protein troponin. Please use the walker, continue exercise program as instructed by physical therapy. Make every effort to prevent falls. Discharge Attestations Time Spent in Discharge Care*: greater than 30 min Quality Metrics Clinical Quality Measures [ No reported AMI, CVA or VTE this stay] Coding Level of Care Code Acute Chg FW DC note Diagnoses Acute exacerbation of chronic obstructive airways disease J44.1 Physical deconditioning R53.81 Infection due to parainfluenza virus 3 B34.8 Lung nodules R91.8 Smoking addiction F17.200 Elevated d-dimer R79.89 Troponin level elevated R77.8
== END 2022-03-09 17:00 | disposition home or self-care (01) | DRG 190 ==
LOC: ER 14:06 → MEDSURG 15:08
PROVIDERS: Admitting Provider Internal Medicine; Emergency Provider Physician Assistant; PCP Nurse Practitioner Family; Visit Provider Internal Medicine
DX: J43.9 Emphysema, unspecified (principal); J15.9 Unspecified bacterial pneumonia; F41.1 Generalized anxiety disorder; Z86.73 Personal history of transient ischemic attack (TIA), and cerebral infarction without residual deficits; F32.A Depression, unspecified; K21.9 Gastro-esophageal reflux disease without esophagitis; M19.90 Unspecified osteoarthritis, unspecified site; F17.210 Nicotine dependence, cigarettes, uncomplicated; R91.8 Other nonspecific abnormal finding of lung field; B34.8 Other viral infections of unspecified site; R77.8 Other specified abnormalities of plasma proteins; I25.10 Atherosclerotic heart disease of native coronary artery without angina pectoris; I25.2 Old myocardial infarction; Z79.51 Long term (current) use of inhaled steroids; E87.5 Hyperkalemia
CPT/HCPCS: 36415; 36600; 71045; 71275; 80048; 80051; 80053; 82330; 82805; 83605; 83880; 84145; 84484; 85025; 85378; 87040; 87070; 87205; 87631; 87635; 93005; 94640; 94664; 96365; 96375; 97110; 97161; 99285; G0378; J1644; J1956; J2930; J7030; Q9967

== ENCOUNTER 2022-05-30 11:36 | Outpatient (CLI) | payer MEDICARE, MEDICAID, SELFPAY ==
--- NOTE | 2022-05-30 11:46 | CT_ITS ---
WS: [id number] CT CHEST WITH INTRAVENOUS CONTRAST HISTORY: LUNG NODULE TECHNIQUE: Contiguous 5 mm axial imaging performed on the thorax. Coronal and sagittal reformats are submitted. All CT scans at [facility] use at least one of these dose optimization techniques: automated exposure control; mA and/or kV adjustment per patient size (includes targeted exams where dose is matched to clinical indication); or iterative reconstruction. CONTRAST: Omnipaque 350; 75 mL IV. DLP: 598.19 mGy.cm COMPARISON: 03/07/2022 Lungs and central airway: Marked pulmonary hyperexpansion from emphysema. Again noted are the multi l obar pulmonary nodules and spiculations. Minimal change since the prior examination. The largest nodu le in the RIGHT lower lobe is slightly more solid measuring 8.5 mm in diameter as compared to 7 mm on the prior study. There is an additional spiculated nodule measuring 7 mm in the RIGHT upper lobe, im age 13 of series 5. Additional scattered spiculations and interstitial thickening are stable. Pleura: Normal. No pleural effusion. Heart and pericardium: Normal size heart with no pericardial effusion. Mediastinum and hilda: Small mediastinal and hilar lymph nodes. No increase in size or number. Vessels: Mild atherosclerosis aorta. Focal plaque with adjacent thrombus in the aortic arch. No aneur ysm. Normal size pulmonary artery. No central filling defects. Chest wall and lower neck: No soft tissue masses. Upper abdomen: Large hiatal hernia. Stomach is approximately 50% intrathoracic. LEFT adrenal nodule m easures 11 mm without increase in size. May be benign adenoma but Hounsfield units are elevated due t o contrast enhancement. Circumferential thrombus in the suprarenal aorta and calcification. Osseous structures: Increase in thoracic kyphosis. CT/CT chest w con* [id number] IMPRESSION: 1. Very minimal increase in consolidation of the RIGHT upper lobe and a RIGHT lower lobe nodules. RIGHT lower lobe nodule has increased in size from 7 to 8.5 mm in diameter. There are additional nodules throughout all lobes which are un changed. Recommend continued close serial CT follow-up or PET/CT imaging. Metas tatic disease is not excluded. 2. Large hiatal hernia. 3. Chronic emphysema. 4. LEFT adrenal mass measures 11 mm and unchanged in size.
[2022-05-30] MEDS: iohexol 350 mg/mL 100 mL Btl IV (12:24)
== END 2022-05-30 11:37 | disposition home or self-care (01) ==
LOC: RAD 11:41
PROVIDERS: PCP Nurse Practitioner Family; Visit Provider Nurse Practitioner Family
DX: R91.1 Solitary pulmonary nodule (principal); K44.9 Diaphragmatic hernia without obstruction or gangrene; J43.9 Emphysema, unspecified
CPT/HCPCS: 71260

== ENCOUNTER 2023-06-02 09:29 | Oncology outpatient (recurring) (ONCR) | payer MEDICARE, MEDICAID, SELFPAY ==
[2023-06-02 11:05] LABS: Basophils # 0.1 10^3/uL (0.0-0.1); Basophils % 0.7 %; Eosinophils # 0.1 10^3/uL (0.0-0.8); Hematocrit 45.3 % (42.0-52.0); Hemoglobin 14.6 g/dL (11.7-16.6); Lymphocytes # 2.6 10^3/uL (0.8-4.8); Mean Corpuscular HGB Conc 32.2 g/dL (30.0-36.0); Mean Corpuscular Hemoglobin 28.5 pg (28.0-34.0); Mean Corpuscular Volume 88.3 fl (80-94); Mean Platelet Volume 10.3 fL (7.4-10.4); Monocytes # 0.6 10^3/uL (0.2-0.9); Monocytes % 6.8 %; Neutrophils # 5.76 10^3/uL (1.8-7.7); Neutrophils % 63.3 %; Nucleated Red Blood Cells % 0 %; Platelet Count 327 10^3/cmm (130-400); Red Blood Count 5.13 10^6/uL (4.1-5.3); Red Cell Distribution Width 15.4 % (12.1-15.1); White Blood Count 9.1 10^3/uL (4.0-10.0)
[2023-06-02 11:35] LABS: Carcinoembryonic Antigen 2.5 ng/mL (0.0-4.7)
[2023-06-02 11:46] LABS: Alanine Aminotransferase 16 U/L (0-41); Albumin Level 4.3 g/dL (3.5-5.2); Alkaline Phosphatase 63 U/L (40-130); Anion Gap 15.5 (5-19); Aspartate Amino Transferase 20 U/L (0-40); Blood Urea Nitrogen 21 mg/dL (8-23); Calcium 9.2 mg/dL (8.5-10.5); Carbon Dioxide 28 mmol/L (22-29); Chloride 100 mmol/L (98-107); Globulin 3.1 g/dL (1.3-4.6); Glomerular Filtration Rate 75.2 mL/min (90-130); Glucose 129 mg/dL (65-115); Osmolality Calculated 293 mOsm/kg (285-295); Potassium 4.5 mmol/L (3.5-5.1); Sodium 139 mmol/L (136-145); Total Bilirubin 0.6 mg/dL (0.15-1.2); Total Protein 7.4 g/dL (6.6-8.7)
== END 2023-06-29 23:59 | disposition home or self-care (01) ==
PROVIDERS: PCP Nurse Practitioner Family; Visit Provider Internal Medicine Medical Oncology
DX: Z08 Encounter for follow-up examination after completed treatment for malignant neoplasm (principal); Z85.038 Personal history of other malignant neoplasm of large intestine
CPT/HCPCS: 80053; 82378; 85025; 99203

== ENCOUNTER 2024-10-26 14:19 | Inpatient (IN) | payer MEDICARE, MEDICAID, SELFPAY ==
[2024-10-26] VITALS (14 sets, daily range): BP systolic 107–122; BP diastolic 70–88; PULSE 75–121; RESP 24–42; TEMP 37–37.3; O2SAT 92–98; BMI 19.8
--- NOTE | 2024-10-26 14:26 | XRR_ITS ---
PROCEDURE INFORMATION: Exam: XR Chest Exam date and time: 10/26/2024 2:32 PM Age: 64 years old Clinical indication: Shortness of breath; Additional info: SOB TECHNIQUE: Imaging protocol: Radiologic exam of the chest. Views: 1 view. COMPARISON: CT chest w con* [id number] 05/30/2022 12:15 PM FINDINGS: Lungs: Lung volumes are large and the lungs are hyperlucent, consistent with emphysema. There is no consolidation. Pleural spaces: There is no pleural effusion or pneumothorax. Heart/Mediastinum: Cardiomediastinal contours are unremarkable. Retrocardiac mass is consistent with a hiatal hernia, as seen on prior chest CT. Bones/joints: Bones are unremarkable. XR/XR chest 1V portable [id number] IMPRESSION: 1. No acute findings. 2. Emphysema.
--- NOTE | 2024-10-26 14:26 | ECG_ITS ---
[facility] Date: 2024-10-26 Pat Name: Surendra James Department: Room: Gender: Male High [employer] Counselor: : 1960 Requested By: Rosy Mckeon Order Number: [id number] Kevin MD: Fidel Scruggs M.D. Measurements Intervals [place] Rate: 111 P: 0 OK: 0 QRS: 267 QRSD: 108 T: 68 QT: 317 QTc: 432 Interpretive Statements UNCERTAIN REGULAR TACHYCARDIA RIGHT AXIS DEVIATION [QRS AXIS > 100] PATTERN CONSISTENT WITH PULMONARY DISEASE INFERIOR MYOCARDIAL INFARCTION , PROBABLY OLD [40+ ms Q WAVE AND/OR ST/T ABNORMALITY IN II/aVF] Compared to ECG 03/07/2022 15:54:54 Right-axis deviation now present Myocardial infarct finding still present Electronically Signed On 10-27-2024 20:07:52 CRAB FISHER by Fidel Scruggs M.D. [email or web address]
[2024-10-26] MEDS: ipratropium-albuterol 3 mL Neb INHALATION (14:37)
--- NOTE | 2024-10-26 14:47 | ED_ITS ---
HPI - SOB/Dyspnea 2 General: Chief Complaint: Shortness of Breath/Dyspnea Stated Complaint: sob Time Seen by Provider: 10/26/24 14:21 Source: patient and EMS Mode of arrival: EMS Limitations: no limitations History of Present Illness: HPI Narrative: 64-year-old male has a history of COPD s tates that he is having worsening productive cough and shortness of breath over the last 2 days he is a smoker states that his recently had been admitted here with pneumonia EMS states his pulse ox was 88% on room air when they arrived he is currently on 3 L he had some low-grade fevers denies any vomiting or diarrhea Associated symptoms: Reports fever(s); Deny abdominal pain, chest pain, nausea or vomiting Related Data Home Medications Medication Instructions Recorded Confirmed albuterol sulfate 90 mcg/actuation 2 puff inhalation Q4H PRN 03/07/22 10/26/24 aerosol inhaler Shortness Of Breath omeprazole 40 mg capsule,delayed 40 mg PO DAILY 03/07/22 10/26/24 release acetaminophen 325 mg tablet 325 mg PO QID PRN Pain 10/26/24 10/26/24 fluticasone propionate 230 1 puff inhalation BID 10/26/24 10/26/24 mcg-salmeterol 21 mcg/actuation HFA inhaler (Advair HFA) Allergies Allergy/AdvReac Type Severity Reaction Status Date / Time codeine Allergy ADR-Gastrointestinal Verified 10/26/24 14:44 Upset Review of Systems 2 Const: Reports: fever(s); Denies: chills, body aches or change in appetite ENMT: Denies: throat pain or dental pain Card: Denies: chest pain Resp: Reports: dyspnea, non-productive cough and wheezing GI: Denies: abdominal pain, nausea, vomiting or diarrhea Musc: Denies: neck pain or back pain Skin/Breast: Denies: rash Neuro: Denies: headache(s) PFSH ED 2 PFSH: Medical History (Updated 10/26/24 @ 17:10 by Rosy Mckeon MD) Elevated d-dimer OA (osteoarthritis) CVA (cerebral vascular accident) Smoking addiction GERD (gastroesophageal reflux disease) Depression COPD (chronic obstructive pulmonary disease) Surgical History (Updated 06/02/23 @ 10:17 by Jaymie Bashir MA) No pertinent past surgical history Family History (Updated 06/02/23 @ 10:11 by Jaymie Bashir MA) Mother Diabetes CAD (coronary artery disease) Denies family history of Clotting disorder Dementia Hyperlipidemia Psychiatric illness Chronic kidney disease (CKD) Suicide Anesthesia complication Bleeding disorder Family history of premature coronary artery disease Lung disease Cancer Hypertension Stroke Social History Smoking and tobacco/nicotine status: current every day tobacco/nicotine user Quit status (tobacco/nicotine): considering quitting Marital status: Course 2 Vital Signs: Vital signs: Vital Signs Temperature 99.1 F 10/26/24 14:22 Pulse Rate 97 10/26/24 17:20 Respiratory Rate 28 H 10/26/24 17:20 Blood Pressure 112/82 10/26/24 17:20 Pulse Oximetry 92 10/26/24 17:20 Oxygen Delivery Me thod Nasal Cannula 10/26/24 16:27 Oxygen Flow Rate 3 10/26/24 16:27 MDM - SOB/Dyspnea Medical Decision Making Patient presents here with cough congestion does have influenza he is hypoxic requiring 3 L of oxygen I spoke to the hospitalist will admit at this time. Medical Records I reviewed the patient's medical records. Lab Data I reviewed the patient's lab results. 10/26/24 14:12 10/26/24 14:12 Labs/Radiology: Radiology Impressions Chest X-Ray 10/26/24 14:26 IMPRESSION: 1. No acute findings. 2. Emphysema. Chest CTA 10/26/24 15:26 IMPRESSION: 1. No pulmonary embolism. 2. Bilateral bronchial and pulmonary abnormalities described above are consistent with infectious bronchiolitis. 3. Moderate centrilobular emphysema. 4. Multiple bilateral pulmonary nodules measuring 3-6 mm. Probable inflammatory nodules. Many of these are new since 03/07/2022. Fleischner Society follow up recommendations for incidental nodules are not indicated. Follow up per the patient's medical condition. 5. Indeterminate left adrenal nodule is stable since 03/07/2022. COMMENTS: The presence of pulmonary emphysema on CT is an independent risk factor for lung cancer. In the absence of a history or active diagnosis of lung cancer, it is recommended that this patient with emphysema be evaluated for enrollment in a low dose CT lung cancer screening program. REFERENCES: Jen Chowdary, et al. Guidelines for Management of Incidental Pulmonary Nodules Detected on CT Images: From the Fleischner Society 2017. Radiology. 2017;284(1):228-243. Laboratory Results WBC 9.04 10^3/uL (3.29-11.43) 10/26/24 14:12 RBC 5.78 10^6/uL (3.85-5.65) H 10/26/24 14:12 Hgb 16.80 g/dL (11.27-16.99) 10/26/24 14:12 Hct 51.6 % (37-53) 10/26/24 14:12 MCV 89.3 fl (82-101) 10/26/24 14:12 MCH 29.1 pg (27-33) 10/26/24 14:12 MCHC 32.6 g/dL (30-55) 10/26/24 14:12 RDW 13.8 % (12.1-15.1) 10/26/24 14:12 Plt Count 237 10^3/cmm (157-399) 10/26/24 14:12 MPV 10.8 fL (7.4-10.4) H 10/26/24 14:12 Neut % (Auto) 84.6 % 10/26/24 14:12 Lymph % (Auto) 6.1 % 10/26/24 14:12 [place]k % (Auto) 9.0 % 10/26/24 14:12 Eos % (Auto) 0.0 % 10/26/24 14:12 Baso % (Auto) 0.1 % 10/26/24 14:12 Neut # (Auto) 7.65 10^3/uL (1.8-7.7) 10/26/24 14:12 Lymph # (Auto) 0.6 10^3/uL (0.8-4.8) L 10/26/24 14:12 [place]k # (Auto) 0.8 10^3/uL (0.2-0.9) 10/26/24 14:12 Eos # (Auto) 0.0 10^3/uL (0.0-0.8) 10/26/24 14:12 Baso # (Auto) 0.0 10^3/uL (0.0-0.1) 10/26/24 14:12 Nucleated RBC % (auto) 0 % 10/26/24 14:12 Nucleated RBCs # 0.0 /100WBC 10/26/24 14:12 PT 12.70 SECONDS (12.1-14.9) 10/26/24 14:12 INR 0.93 (0.8-1.2) 10/26/24 14:12 Specimen Type Arterial 10/26/24 14:37 Sample Site Radial, left 10/26/24 14:37 ABG pH 7.36 (7.35-7.45) 10/26/24 14:37 ABG pCO2 52.3 mmHg (35-45) H 10/26/24 14:37 ABG pO2 77.4 mmHg (80.0-100.0) L 10/26/24 14:37 ABG PO2/FiO2 Ratio 241 10/26/24 14:37 ABG HCO3 29.2 mmol/L (22-26) H 10/26/24 14:37 ABG Base Excess 2.4 mmol/L (-2.0-2.0) H 10/26/24 14:37 Cholo Test Pos 10/26/24 14:37 Hematocrit 48.5 % (42-52) 10/26/24 14:37 Hgb O2 Saturation 92.7 % (95-100) L 10/26/24 14:37 Carboxyhemoglobin < 0.3 %THgb (0.4-20.1) L 10/26/24 14:37 Methemoglobin 1.1 % (0.4-1.5) 10/26/24 14:37 Total Hemoglobin 15.8 g/dL (14-18) 10/26/24 14:37 O2 Delivery Device Nc 10/26/24 14:37 O2 Liters/Min 3.0 % 10/26/24 14:37 FiO2 32.0 % 10/26/24 14:37 Tool Trouble Shooter ID Cak 10/26/24 14:37 Sodium 131 mmol/L (136-145) L 10/26/24 14:12 Potassium 4.2 mmol/L (3.5-5.1) 10/26/24 14:12 Chloride 89 mmol/L (98-107) L 10/26/24 14:12 Carbon Dioxide 28 mmol/L (22-29) 10/26/24 14:12 Anion Gap 18.2 (5-19) 10/26/24 14:12 BUN 35 mg/dL (8-23) H 10/26/24 14:12 Creatinine 0.9 mg/dL (0.7-1.2) 10/26/24 14:12 GFR Calculation 84.4 mL/min (90-130) L 10/26/24 14:12 Glucose 102 mg/dL (65-115) 10/26/24 14:12 Calculated Osmolality 280 mOsm/kg (285-295) L 10/26/24 14:12 Calcium 9.6 mg/dL (8.5-10.5) 10/26/24 14:12 Total Bilirubin 0.5 mg/dL (0.15-1.2) 10/26/24 14:12 AST 41 U/L (0-40) H 10/26/24 14:12 ALT 21 U/L (0-41) 10/26/24 14:12 Alkaline Phosphatase 75 U/L (40-130) 10/26/24 14:12 NT-Pro-B Natriuret Pep 1125 pg/mL (0-125) H 10/26/24 14:12 Total Protein 8.1 g/dL (6.6-8.7) 10/26/24 14:12 Albumin 4.1 g/dL (3.5-5.2) 10/26/24 14:12 Globulin 4.0 g/dL (1.3-4.6) 10/26/24 14:12 Coronavirus (PCR) Negative (Negative) 10/26/24 15:27 Influenza A (PCR) Positive (Negative) 10/26/24 15:27 Influenza Type B (PCR) Negative (Negative) 10/26/24 15:27 RSV (PCR) Negative (Negative) 10/26/24 15:27 All radiology interpretation(s) finalized by discharge EKG Data EKG 1: I personally reviewed and interpreted this EKG as follows: EKG Interpretation Date: 10/26/24 EKG interpretation time: 14:24 Interpretation: sinus tach hr [address] elevation qrs 108 qtc 383 Discharge Plan Discharge Patient Disposition: Admitted As Inpatient Clinical Impression: Influenza, Acute respiratory failure with hypoxia Condition: Stable Coding Level of Care Code ED Front Desk Specialist for Chg Cheyanne
[2024-10-26 14:48] LABS: Basophils % 0.1 %; Hematocrit 51.6 % (37-53); Lymphocytes # 0.6 10^3/uL (0.8-4.8); Lymphocytes % 6.1 %; Mean Corpuscular HGB Conc 32.6 g/dL (30-55); Mean Corpuscular Hemoglobin 29.1 pg (27-33); Mean Corpuscular Volume 89.3 fl (82-101); Mean Platelet Volume 10.8 fL (7.4-10.4); Monocytes # 0.8 10^3/uL (0.2-0.9); Neutrophils # 7.65 10^3/uL (1.8-7.7); Neutrophils % 84.6 %; Nucleated Red Blood Cells % 0 %; Platelet Count 237 10^3/cmm (157-399); Red Blood Count 5.78 10^6/uL (3.85-5.65); Red Cell Distribution Width 13.8 % (12.1-15.1); White Blood Count 9.04 10^3/uL (3.29-11.43)
[2024-10-26 14:48] LABS: ABG PCO2 52.3 mmHg (35-45); ABG PH Result 7.36 (7.35-7.45); Arterial Blood Gas Hematocrit 48.5 % (42-52); Base Excess ABG 2.4 mmol/L (-2.0-2.0); Blood Gas Allen Test Pos; Blood Gas Operator Identificat CAK; Blood Gas Sample Site Radial, left; Blood Gas Sample Type Arterial; Carboxyhemoglobin < 0.3 %THgb (0.4-20.1); HCO3 ABG 29.2 mmol/L (22-26); HGB O2 Sat 92.7 % (95-100); Methemoglobin 1.1 % (0.4-1.5); Oxygen Device NC; PO2 ABG 77.4 mmHg (80.0-100.0); PO2 FiO2 Ratio Arterial Blood 241; Total Hemoglobin 15.8 g/dL (14-18)
[2024-10-26 15:00] LABS: INR 0.93 (0.8-1.2)
[2024-10-26] MEDS: methylPREDNISolone sod succ 125 mg/2 mL INJ IVP (15:01)
[2024-10-26 15:19] LABS: Alanine Aminotransferase 21 U/L (0-41); Albumin Level 4.1 g/dL (3.5-5.2); Alkaline Phosphatase 75 U/L (40-130); Anion Gap 18.2 (5-19); Aspartate Amino Transferase 41 U/L (0-40); Blood Urea Nitrogen 35 mg/dL (8-23); Calcium 9.6 mg/dL (8.5-10.5); Carbon Dioxide 28 mmol/L (22-29); Chloride 89 mmol/L (98-107); Creatinine Clr Calc Pharmacy 73.8022; Glomerular Filtration Rate 84.4 mL/min (90-130); Glucose 102 mg/dL (65-115); NT Pro B Type Natriuretic Pept 1125 pg/mL (0-125); Osmolality Calculated 280 mOsm/kg (285-295); Potassium 4.2 mmol/L (3.5-5.1); Sodium 131 mmol/L (136-145); Total Bilirubin 0.5 mg/dL (0.15-1.2); Total Protein 8.1 g/dL (6.6-8.7)
--- NOTE | 2024-10-26 15:26 | CTR_ITS ---
PROCEDURE INFORMATION: Exam: CTA Chest With Contrast Exam date and time: 10/26/2024 3:41 PM Age: 64 years old Clinical indication: Shortness of breath; Patient HX: Colorectal cancer; Additional info: SOB TECHNIQUE: Imaging protocol: Computed tomographic angiography of the chest with contrast. Exam focused on the arteries. 3D rendering (Not supervised by radiologist): MIP and/or 3D reconstructed images were created by the technologist. Radiation optimization: All CT scans at this facility use at least one of these dose optimization techniques: automated exposure control; mA and/or kV adjustment per patient size (includes targeted exams where dose is matched to clinical indication); or iterative reconstruction. Contrast material: OMNIPAQUE 350; Contrast volume: 60 ml; Contrast route: INTRAVENOUS (IV); COMPARISON: CT angio chest PE protcl [id number] 03/07/2022 1:16 PM RADIATION DOSE METRICS: Total DLP (mGy-cm): 116.1 FINDINGS: Pulmonary arteries: The pulmonary arteries are adequately opacified for evaluation to the subsegmental level. There is no filling defect to suggest embolism. Aorta: There is mild aortic atherosclerotic disease. Veins: There is contrast reflux into the IVC and hepatic veins. Lungs: Moderate centrilobular emphysema. There is mild bilateral apical subpleural scarring. There is extensive bilateral peripheral bronchial wall thickening and ill-defined reticulonodular opacity predominantly involving the mid to lower lungs. Numerous scattered bilateral pulmonary nodules measure 3-6 mm. Many of the nodules are new since 03/07/2022 and are likely inflammatory. Pleural spaces: There is no pleural effusion or pneumothorax. Heart: Heart size is normal. There is no pericardial effusion. Lymph nodes: Mildly prominent mediastinal lymph nodes of unknown significance. A subcarinal node measures 13 mm short axis which is unchanged since 03/07/2022. Diaphragm: Moderate sliding-type hiatal hernia. Adrenal glands: There is an intermediate density 2.0 x 1.4 cm left adrenal nodule which is stable since 03/07/2022. Bones/joints: Bones are unremarkable. Soft tissues: The extrathoracic soft tissues are unremarkable. CT/CT angio chest PE protcl [id number] IMPRESSION: 1. No pulmonary embolism. 2. Bilateral bronchial and pulmonary abnormalities described above are consistent with infectious bronchiolitis. 3. Moderate centrilobular emphysema. 4. Multiple bilateral pulmonary nodules measuring 3-6 mm. Probable inflammatory nodules. Many of these are new since 03/07/2022. Fleischner Society follow up recommendations for incidental nodules are not indicated. Follow up per the patient's medical condition. 5. Indeterminate left adrenal nodule is stable since 03/07/2022. COMMENTS: The presence of pulmonary emphysema on CT is an independent risk factor for lung cancer. In the absence of a history or active diagnosis of lung cancer, it is recommended that this patient with emphysema be evaluated for enrollment in a low dose CT lung cancer screening program. REFERENCES: Jen Chowdary, et al. Guidelines for Management of Incidental Pulmonary Nodules Detected on CT Images: From the Fleischner Society 2017. Radiology. 2017;284(1):228-243.
[2024-10-26] MEDS: iohexol 350 mg/mL 500 mL Btl (per mL) IV (15:43)
[2024-10-26 16:07] LABS: Covid PCR NEGATIVE (Negative); Influenza A POSITIVE (Negative); Influenza B NEGATIVE (Negative); Respiratory Syncytial Virus Ce NEGATIVE (Negative)
[2024-10-26] MEDS: oseltamivir phosphate 75 mg Capsule PO (17:19)
[2024-10-26 17:48] LABS: Lactic Sepsis W/Reflex 1.6 mmol/L (0.5-2.2)
[2024-10-26 17:49] LABS: Procalcitonin 0.89 ng/mL (0-0.5)
--- NOTE | 2024-10-26 17:55 | PC.NURSE ---
ADMITTING PHYSICIAN IN WITH PT AT 1043
--- NOTE | 2024-10-26 17:57 | P.HP_ITS ---
Providers/Chief Complaint 2 Admitting Physician: Naa Walker MD Primary Care Provider: FELICITA Flannery Chief Complaint: sob History of Present Illness Surendra James is a 64 year old male with past medical history of COPD, colon cancer, current smoker came to the ER because of worsening difficulty of breathing for last 1 week. Patient states his breathing has been worse for over a year but for last few days since [place] he has been having more difficulty in breathing than usual. Does not use oxygen at baseline. States he thinks he possibly have needed oxygen for a while. Shortness of breath is getting worse on minimal exertion and talking. Complains of nausea and vomiting. Denies any diarrhea. States multiple people in his neighborhood are coming down with similar complaints. In the ER he was found to be hypoxic requiring up to 3 L, febrile, tachycardic. He was positive for influenza A. Review of Systems 2 General: Reports: 10 or more systems reviewed and unremarkable except in HPI and below Const: Denies: fever(s), chills, body aches, change in appetite, change in weight, malaise, night sweats, diaphoresis, change in sleep pattern, daytime sleepiness or snoring Eyes: Denies: change in vision, blurry vision, photophobia, eye discomfort or eye discharge ENMT: Denies: throat pain, enlarged tonsils, hoarseness, mouth pain, oral sores, dry mouth, tinnitus, nasal congestion or post nasal drip Card: Denies: chest pain, palpitations, irregular heart rhythm, edema, swelling of feet/ankles, lightheadedness, syncope, pre-syncope, dyspnea on exertion, orthopnea, leg pain with exertion or acrocyanosis Resp: Denies: dyspnea, productive cough, non-productive cough, wheezing, stridor, pain on inspiration, change in phlegm color, hemoptysis or chest congestion GI: Denies: abdominal pain, nausea, vomiting, hematemesis, coffee ground emesis, dysphagia, heartburn, diarrhea, constipation, bloating, GI cramping, change in bowel habits, pain on defecation, hematochezia or melena : Denies: flank pain, difficulty urinating, dysuria, urinary frequency, urinary urgency, urinary hesitancy, urinary dribbling, difficulty starting urination, change in urine stream, nocturia or hematuria Musc: Denies: neck pain, back pain, extremity pain, joint pain, joint swelling, joint redness, joint stiffness or limited range of motion Neuro: Denies: headache(s), numbness in extremities, weakness in extremities, sensory changes, lack of coordination, difficulty walking, frequent falls, dizziness, vertigo, confusion, Slurred speech present, difficulty communicating thoughts or seizure-like activity Psych: Denies: anxiety, depression, mood swings, panic attacks, hopelessness or irritability Endo: Denies: polyuria, polydipsia, tired all the time, cold intolerance, excessive sweating, flushing or heat intolerance Alan/Lymph: Denies: easy bruising or easy bleeding All/Imm: Denies: tongue swelling, facial swelling or acute wheezing Medications/Allergies Home Medications Medication Instructions Recorded Confirmed Last Taken Type albuterol sulfate 90 mcg/actuation 2 puff inhalation Q4H PRN 03/07/22 10/26/24 03/06/22 History aerosol inhaler Shortness Of Breath omeprazole 40 mg capsule,delayed 40 mg PO DAILY 03/07/22 10/26/24 03/06/22 History release acetaminophen 325 mg tablet 325 mg PO QID PRN Pain 10/26/24 10/26/24 Unknown History fluticasone propionate 230 1 puff inhalation BID 10/26/24 10/26/24 Unknown History mcg-salmeterol 21 mcg/actuation HFA inhaler (Advair HFA) Allergies Allergy/AdvReac Type Severity Reaction Status Date / Time codeine Allergy ADR-Gastrointestinal Verified 10/26/24 14:44 Upset PFSH Acute 2 PFSH: Medical History (Updated 10/26/24 @ 18:01 by Azael Sparks MD) Elevated d-dimer OA (osteoarthritis) CVA (cerebral vascular accident) Smoking addiction GERD (gastroesophageal reflux disease) Depression COPD (chronic obstructive pulmonary disease) Surgical History (Updated 10/26/24 @ 18:01 by Azael Sparks MD) History of bladder surgery History of creation of ostomy S/P colostomy History of colostomy reversal H/O partial cystectomy No pertinent past surgical history Family History (Updated 06/02/23 @ 10:11 by Jaymie Bashir MA) Mother Diabetes CAD (coronary artery disease) Denies family history of Clotting disorder Dementia Hyperlipidemia Psychiatric illness Chronic kidney disease (CKD) Suicide Anesthesia complication Bleeding disorder Family history of premature coronary artery disease Lung disease Cancer Hypertension Stroke Social History Smoking and tobacco/nicotine status: current every day tobacco/nicotine user Quit status (tobacco/nicotine): considering quitting Marital status: Vitals/I&O/Wt Last Vital Signs Temp 99.1 F 10/26/24 14:22 Pulse 97 10/26/24 17:20 Resp 28 H 10/26/24 17:20 BP 112/82 10/26/24 17:20 Pulse Ox 92 10/26/24 17:20 O2 Del Method Nasal Cannula 10/26/24 16:27 O2 Flow Rate 3 10/26/24 16:27 Weight last 48 hrs Weight 58.967 kg Physical Exam 2 Narrative: General: In distress for difficulty in breathing, AO x 3, sick appearing, cachectic with bitemporal wasting HEENT: PERRLA, pupils bilaterally equal and reactive Chest: Bilateral bronchial breath sounds all lung [place] with occasional rhonchi CVS: S1-S2 regular, no murmurs, tachycardia, no gallops, no rubs Abdomen: Soft, nontender, no organomegaly, bowel sounds present Neuro: No focal deficits, no facial deformity, AO x3, power 5/5 in all limbs Data 10/26/24 14:12 10/26/24 14:12 Micro: Microbiology 10/26/24 17:23 Blood Culture - Preliminary Blood SPECIMEN COLLECTED 10/26/24 17:23 Blood Culture - Preliminary Blood SPECIMEN COLLECTED A&P Assessment and plan (1) Acute respiratory failure with hypoxia: In setting of COPD exacerbation from influenza A. Cannot rule out superadded bacterial infection. Supplementation keeping saturation over 90%. Wean oxygen accordingly. Start on treatment for community-acquired pneumonia with IV ceftriaxone and oral azithromycin. Check MRSA swab, blood culture, urinalysis, sputum culture. If MRSA positive will add vancomycin. (2) COPD (chronic obstructive pulmonary disease): Emphysema. Seen on CT scan. Oxygen supplementation keeping saturation 90%. Ipratropium, Xopenex every 4-hour, Pulmicort twice daily. Solu-Medrol 40 mg every 6 hour. Will try to wean within next 24 to 48 hours. (3) Influenza: Supportive treatment. Start on Tamiflu 75 mg twice daily. Incentive spirometry. Out of bed to chair. (4) Sepsis: SIRS: Tachycardic, Febrile, tachypneic Source: Pneumonia End organ damage: Acute respiratory failure Check lactate Will try to avoid giving full sepsis bolus to avoid fluid overload. For now we will give 500 cc IV fluid bolus and started on normal saline at 75 cc/h. Monitor blood pressures. Keep mean artery pressure 65 mmHg. Check blood culture, urine culture, MRSA swab, trend procalcitonin, bacterial antigen. (5) Hyponatremia: Most likely secondary dehydration. Fluid as above. Monitor BMP daily. Plan Chronic smoker: Discussed detail with the patient regarding need to avoid any further smoking. He states he is trying to quit. He is agreeable for nicotine patch. CODE STATUS: Discussed today with the patient. Full code. Patient's friend Johanne will be the DPOA Regular diet Protonix OPD prophylaxis Heparin 5000 every 12 hourly for DVT prophylaxis. Attestations 2 Medical Necessity Statement*: Admission for 1-2 midnights for management of hypoxic respiratory failure in setting of COPD exacerbation, influenza A, superadded bacterial infection Diagnoses Acute respiratory failure with hypoxia J96.01 COPD (chronic obstructive pulmonary disease) J44.9 Influenza J11.1 Sepsis A41.9 Hyponatremia E87.1
--- NOTE | 2024-10-26 18:03 | PC.NURSE ---
ATTEMPTED REPORT TO CSU AT 0590
--- NOTE | 2024-10-26 18:09 | ECG_ITS ---
[facility] 2024[facility]26 Pat Name: Surendra James Department: Room: 105 Gender: Male Photo Manager: : [id number] Requested By: Azael Sparks Order Number: [id number] Kevin MD: Fidel Scruggs M.D. Measurements Intervals [place] Rate: 101 P: 101 TX: 222 QRS: -83 QRSD: 104 T: 73 QT: 334 QTc: 435 Interpretive Statements SINUS TACHYCARDIA WITH FIRST DEGREE AV BLOCK LEFT AXIS DEVIATION [QRS AXIS < -30] PATTERN CONSISTENT WITH PULMONARY DISEASE SEPTAL MYOCARDIAL INFARCTION , PROBABLY OLD [40+ ms Q WAVE IN V1/V2] Compared to ECG 10/26/2024 14:24:36 First degree AV block now present Left-axis deviation now present Supraventricular tachycardia no longer present Right-axis deviation no longer present Myocardial infarct finding still present Electronically Signed On 10-27-2024 20:16:05 SIGNAL CIRCUIT DESIGNER by Fidel Scruggs M.D. [email or web address]
--- NOTE | 2024-10-26 18:14 | PC.NURSE ---
ATTEMPTED TO CALL REPORT FOR THE SECOND TIME AT 181
[2024-10-26 18:24] LABS: Bilirubin Urine Negative (Negative); Blood Urine 2+ (Negative); Glucose Urine UA Negative (Normal); Ketones Urine Negative (Negative); Leukocyte Esterase Urine Negative (Negative); Nitrate Urine Negative (Negative); Protein Urine 2+ (Negative); Urine Appearance Turbid (CLEAR); Urine Color Dark Yellow (Yellow); pH Urine 5.5 (5-7)
[2024-10-26 18:29] LABS: Add Urine Microscopic? YES; Bacteria Urine None Seen /hpf; Hyaline Casts Urine 29.34 /lpf; Squamous Epithelial Cell Urine 0-5 /hpf (0-5); Universal Test for UA Present (0); WBC Urine 0-5 /hpf (0-5)
[2024-10-26 18:36] LABS: Iron 20 ug/dL (59-158); Percent Saturation 7.3 % (20-50); Thyroid Stimulating Hormone 4.22 uIU/mL (0.27-4.20); Total Iron Binding Capacity 271 mcg/dl; Unsaturated Iron Binding 251 ug/dL (112-347)
[2024-10-26 18:41] LABS: Add Urine Culture? No; Amorphous Sediment Urine 4+ /hpf; RBC Urine 0-4 /hpf (0-2); Specific Gravity, Urine 1.033 (1.005-1.030)
[2024-10-26 20:23] LABS: Vitamin B12 990 pg/mL (232-1245)
[2024-10-26] MEDS: sodium chloride 0.9% 1,000 ML 50 ML IV (20:30)
[2024-10-26] MEDS: cefTRIAXone 1,000 mg SDV 1000 MG IVP (20:36)
[2024-10-26] MEDS: pantoprazole 40 mg SDV IVP (20:43)
[2024-10-26] MEDS: methylPREDNISolone sod succ 40 mg/mL INJ IVP (20:43)
[2024-10-26] MEDS: sodium chloride 0.9% 500 ML 999 ML IV (20:44)
[2024-10-26] MEDS: ipratropium 0.5 mg/2.5 mL Neb INHALATION ×2 (20:47→23:50)
[2024-10-26] MEDS: budesonide 0.5 mg/2 mL Neb INHALATION (20:47)
[2024-10-26] MEDS: levalbuterol 0.63 mg/3 mL Neb INHALATION ×2 (20:48→23:50)
[2024-10-27] VITALS (14 sets, daily range): BP systolic 105–128; BP diastolic 69–86; PULSE 85–115; RESP 18–32; TEMP 36.4–36.9; O2SAT 95–99; BMI 19.8
[2024-10-27 00:29] LABS: MRSA PCR OZH (swab) NOT DETECTED (Negative)
[2024-10-27] MEDS: methylPREDNISolone sod succ 40 mg/mL INJ IVP ×4 (03:37→20:44)
[2024-10-27] MEDS: levalbuterol 0.63 mg/3 mL Neb INHALATION ×5 (04:14→20:45)
[2024-10-27] MEDS: ipratropium 0.5 mg/2.5 mL Neb INHALATION ×5 (04:14→20:45)
[2024-10-27 05:47] LABS: Hematocrit 47.5 % (37-53); Lymphocytes # 0.4 10^3/uL (0.8-4.8); Lymphocytes % 7.1 %; Mean Corpuscular HGB Conc 31.2 g/dL (30-55); Mean Corpuscular Hemoglobin 28.8 pg (27-33); Mean Corpuscular Volume 92.4 fl (82-101); Mean Platelet Volume 10.8 fL (7.4-10.4); Monocytes # 0.2 10^3/uL (0.2-0.9); Monocytes % 3.7 %; Neutrophils % 88.8 %; Nucleated Red Blood Cells % 0 %; Platelet Count 196 10^3/cmm (157-399); Red Blood Count 5.14 10^6/uL (3.85-5.65); Red Cell Distribution Width 13.7 % (12.1-15.1); White Blood Count 5.07 10^3/uL (3.29-11.43)
[2024-10-27 06:03] LABS: Estmated Average Glucose 123; Hemoglobin A1C 5.9 % (4.0-6.0)
[2024-10-27 06:05] LABS: Chol HDL Ratio 3.12 mg/dL (1.0-5.00); Cholesterol 159 mg/dL (0-200); HDL Cholesterol 51 mg/dL (60-100); LDL Cholesterol Calculated 93 mg/dL (50-129); LDL HDL Ratio 1.82 RATIO (0.00-3.22); Triglycerides 77 mg/dL (0-150)
[2024-10-27 06:07] LABS: Alanine Aminotransferase 17 U/L (0-41); Albumin Level 3.5 g/dL (3.5-5.2); Alkaline Phosphatase 68 U/L (40-130); Anion Gap 15.6 (5-19); Aspartate Amino Transferase 28 U/L (0-40); Blood Urea Nitrogen 35 mg/dL (8-23); Calcium 8.3 mg/dL (8.5-10.5); Carbon Dioxide 28 mmol/L (22-29); Chloride 99 mmol/L (98-107); Creatinine Clr Calc Pharmacy 73.8022; Globulin 3.2 g/dL (1.3-4.6); Glomerular Filtration Rate 84.4 mL/min (90-130); Glucose 158 mg/dL (65-115); Magnesium 2.3 mg/dL (1.7-2.3); Osmolality Calculated 297 mOsm/kg (285-295); Phosphorus 3.8 mg/dL (2.5-4.5); Potassium 4.6 mmol/L (3.5-5.1); Procalcitonin 0.65 ng/mL (0-0.5); Sodium 138 mmol/L (136-145); Total Bilirubin 0.2 mg/dL (0.15-1.2); Total Protein 6.7 g/dL (6.6-8.7)
[2024-10-27 06:13] LABS: Glucose Point of Care 124 mg/dL (70-110)
[2024-10-27 06:21] LABS: Folate Level 16.2 ng/mL (4.5-32.2)
[2024-10-27] MEDS: budesonide 0.5 mg/2 mL Neb INHALATION ×2 (07:51→20:45)
[2024-10-27] MEDS: oseltamivir phosphate 75 mg Capsule PO ×2 (08:48→17:18)
[2024-10-27] MEDS: nicotine 14 mg Patch 1 PATCH TRANSDERMA (08:48)
--- NOTE | 2024-10-27 13:45 | P.PN_ITS ---
Subjective 2 Subjective: No acute events overnight. Patient states he is feeling a lot better. Looks more comfortable. Denies any nausea counting, headache. States his difficulty in breathing is mostly resolved. Denies any nausea counting, headache. Vitals/I&O/Wt Last Vital Signs Temp 97.6 F 10/27/24 11:56 Pulse 90 10/27/24 11:56 Resp 32 H 10/27/24 11:56 BP 105/81 10/27/24 11:56 Pulse Ox 96 10/27/24 11:56 O2 Del Method Nasal Cannula 10/27/24 11:56 O2 Flow Rate 2 10/27/24 11:56 10/26/24 10/27/24 10/27/24 22:59 06:59 14:59 Intake Total 500 / 500 480 / 480 Output Total 400 / 400 350 / 750 100 / 100 Balance 100 / 100 -350 / -250 380 / 380 Weight last 48 hrs Weight 58.967 kg Weight 58.967 kg Weight 58.967 kg Physical Exam 2 Narrative: General: No acute distress, AO x 3, cachectic with bitemporal wasting HEENT: PERRLA, pupils bilaterally equal and reactive Chest: Bilateral bronchial breath sounds all lung [place] with occasional rhonchi CVS: S1-S2 regular, no murmurs, tachycardia, no gallops, no rubs Abdomen: Soft, nontender, no organomegaly, bowel sounds present Neuro: No focal deficits, no facial deformity, AO x3, power 5/5 in all limbs Data 10/27/24 05:03 10/27/24 05:03 Micro: Microbiology 10/26/24 15:26 Bacterial Antigens - Final Urine Kidney 10/26/24 17:23 Blood Culture - Preliminary Blood SPECIMEN COLLECTED 10/26/24 17:23 Blood Culture - Preliminary Blood SPECIMEN COLLECTED A&P Assessment and plan (1) Acute respiratory failure with hypoxia: In setting of COPD exacerbation from influenza A. Cannot rule out superadded bacterial infection. Supplementation keeping saturation over 90%. Wean oxygen accordingly. Continue with treatment for community-acquired pneumonia with IV ceftriaxone and oral azithromycin. MRSA swab negative. Follow-up blood culture, sputum culture. (2) COPD (chronic obstructive pulmonary disease): Emphysema. Seen on CT scan. Oxygen supplementation keeping saturation 90%. Ipratropium, Xopenex every 4-hour, Pulmicort twice daily. Wean Solu-Medrol 40 mg 3 times daily. Will plan to wean aggressively further over the next 24 to 48 hours. (3) Influenza: Supportive treatment. Continue with Tamiflu 75 mg twice daily. Will finish a 5-day course. Incentive spirometry. Out of bed to chair. (4) Sepsis: SIRS: Tachycardic, Febrile, tachypneic Source: Pneumonia End organ damage: Acute respiratory failure Appreciate lactate. Patient is eating well. Discontinue IV fluids. Monitor blood pressures. Keep mean artery pressure 65 mmHg. Follow-up blood culture, urine culture. Negative MRSA swab, appreciate trend procalcitonin, negative bacterial antigen. (5) Hyponatremia: Resolved. Plan Chronic smoker: Discussed detail with the patient regarding need to avoid any further smoking. He states he is trying to quit. He is agreeable for nicotine patch. CODE STATUS: Discussed today with the patient. Full code. Patient's friend Johanne will be the DPOA Regular diet Protonix OPD prophylaxis Heparin 5000 every 12 hourly for DVT prophylaxis. Transfer to [facility] floor. Attestations 2 Medical Necessity Statement*: Requires further hospitalization for management of COPD exacerbation leading to acute hypoxic respiratory failure in setting of influenza A, community-acquired pneumonia Diagnoses Acute respiratory failure with hypoxia J96.01 COPD (chronic obstructive pulmonary disease) J44.9 Influenza J11.1 Sepsis A41.9 Hyponatremia E87.1
[2024-10-27] MEDS: pantoprazole 40 mg SDV IVP (17:17)
[2024-10-27] MEDS: cefTRIAXone 1,000 mg SDV 1000 MG IVP (17:18)
[2024-10-28] VITALS (15 sets, daily range): BP systolic 100–124; BP diastolic 70–87; PULSE 71–101; RESP 15–21; TEMP 36.3–37.1; O2SAT 91–100
[2024-10-28] MEDS: levalbuterol 0.63 mg/3 mL Neb INHALATION ×6 (00:49→20:29)
[2024-10-28] MEDS: ipratropium 0.5 mg/2.5 mL Neb INHALATION ×6 (00:49→20:29)
[2024-10-28 05:14] LABS: Basophils % 0.1 %; Lymphocytes # 0.5 10^3/uL (0.8-4.8); Lymphocytes % 6.1 %; Mean Corpuscular HGB Conc 31.1 g/dL (30-55); Mean Corpuscular Hemoglobin 28.7 pg (27-33); Mean Corpuscular Volume 92.4 fl (82-101); Monocytes # 0.4 10^3/uL (0.2-0.9); Monocytes % 5.1 %; Neutrophils # 7.49 10^3/uL (1.8-7.7); Neutrophils % 88.1 %; Nucleated Red Blood Cells % 0 %; Platelet Count 195 10^3/cmm (157-399); Red Blood Count 4.87 10^6/uL (3.85-5.65); Red Cell Distribution Width 13.6 % (12.1-15.1)
[2024-10-28 05:40] LABS: Alanine Aminotransferase 15 U/L (0-41); Albumin Level 3.3 g/dL (3.5-5.2); Alkaline Phosphatase 49 U/L (40-130); Anion Gap 10.6 (5-19); Aspartate Amino Transferase 20 U/L (0-40); Blood Urea Nitrogen 30 mg/dL (8-23); Calcium 9.1 mg/dL (8.5-10.5); Carbon Dioxide 31 mmol/L (22-29); Chloride 100 mmol/L (98-107); Creatinine Clr Calc Pharmacy 68.0646; Globulin 3.3 g/dL (1.3-4.6); Glomerular Filtration Rate 96.7 mL/min (90-130); Glucose 151 mg/dL (65-115); Osmolality Calculated 293 mOsm/kg (285-295); Potassium 4.6 mmol/L (3.5-5.1); Sodium 137 mmol/L (136-145); Total Bilirubin 0.2 mg/dL (0.15-1.2); Total Protein 6.6 g/dL (6.6-8.7)
[2024-10-28] MEDS: budesonide 0.5 mg/2 mL Neb INHALATION ×2 (07:24→20:29)
[2024-10-28] MEDS: oseltamivir phosphate 75 mg Capsule PO ×2 (09:16→17:29)
[2024-10-28] MEDS: acetaminophen 325 mg Tablet 650 MG PO (09:16)
[2024-10-28] MEDS: methylPREDNISolone sod succ 40 mg/mL INJ IVP ×3 (09:16→20:51)
[2024-10-28] MEDS: bisacodyl 5 mg Tablet 10 MG PO (09:16)
[2024-10-28] MEDS: nicotine 14 mg Patch 1 PATCH TRANSDERMA (09:16)
--- NOTE | 2024-10-28 10:31 | PC.CHAP ---
Pastoral Care Encounter/Spiritual Assessment Type of Contact [] Declined hand molder and caster visit [] Patient/Family/Request visit [] Outpatient visit [] Follow-up visit [] Physician referral [] Code/Alert [x] Routine visit [] Staff referral [] Actively dying [] Patient sleeping [] Family support [] [] Out of room [] Palliative care [] [] Receiving care in room [] Pre-surgical visit [] Trauma [] Long length of stay [] ICU visit [] Other: Relational/Emotional Strength [] Patient feels connected with others/family/visitors/staff [] Distress [] Loneliness/isolation [] Abandonment Spirituality of Patient [] Person of Kaylin [] Attends Yazdanism of their Kaylin [] Believes in Prayer [] Reads Bible or Oriental Orthodox materials [] There are Spiritual issues to be addressed Research Interviewer Interventions [x] Prayer [] Active listening [] Non-anxious presence [] Spiritual/emotional support [] Crisis/trauma care [] Spiritual counseling [] Bereavement support [] Provided bereavement packet [] Provided Bible/devotional materials [] Provided toy/stuffed animal, coloring book to patient or family member [] Provided Communion [] Anointing/[place] [] Salvation [] Completed spiritual assessment [] Other: Impact on Illness or Injury [] Angry [] Fearful [] Anxious [] Often cries [] Exhaustion [] Unable to work [] Unable to attend confucianism [] Unable to walk/stand [] Unable to read [] Unable to drive [] Unable to eat/drink [] Unable to sleep [] Unable to be with family [] Patient intubated [] Other: Summary flu Time spent with patient
--- NOTE | 2024-10-28 13:48 | PC.SOCIAL ---
IMM Updated Updated pt on IMM. No questions voiced. Provided pt a copy. Initialed, dated, & timed a copy & placed in chart.
[2024-10-28] MEDS: cefTRIAXone 1,000 mg SDV 1000 MG IVP (17:29)
[2024-10-28] MEDS: pantoprazole 40 mg SDV IVP (20:51)
--- NOTE | 2024-10-28 21:48 | P.PN_ITS ---
Subjective 2 Subjective: Generally weak. He gets extremely fatigued and out of breath with trying to get up and ambulate. Still having malaise. Cough. Vitals/I&O/Wt Last Vital Signs Temp 98.8 F 10/28/24 20:00 Pulse 80 10/28/24 20:00 Resp 20 H 10/28/24 20:00 BP 124/87 10/28/24 20:00 Pulse Ox 91 10/28/24 20:00 O2 Del Method Room Air 10/28/24 20:00 O2 Flow Rate 1 10/28/24 20:00 10/28/24 10/28/24 10/28/24 06:59 14:59 22:59 Intake Total 120 / 2075.833 360 / 360 Output Total 200 / 500 350 / 350 Balance -80 / 1575.833 360 / 360 -350 / 10 Weight last 48 hrs Weight 53.609 kg Weight 52.98 kg Weight 58.967 kg Physical Exam 2 Narrative: Generally weak. Malaise. Const: COMMON NORMALS: patient oriented x3 and alert GENERAL APPEARANCE: c ooperative ORIENTATION/CONSCIOUSNESS: Yes awake HENMT: COMMON NORMALS: oropharynx normal Neck/C-Spine: COMMON NORMALS: no JVD Resp: COMMON NORMALS: normal respiratory effort and clear to auscultation bilaterally AUSCULTATION: clear to auscultation bilaterally Cardio: COMMON NORMALS: no JVD, regular rhythm, S1 normal heart sound present, S2 normal heart sound present and No murmurs present (Cardio) RHYTHM: regular rhythm HEART SOUNDS: S1 normal heart sound present and S2 normal heart sound present GI: COMMON NORMALS: Normal to inspection, nondistended, normoactive bowel sounds present, Soft to palpation and non-tender PALPATION: Yes Soft to palpation Extremity: COMMON NORMALS: no joint enlargement and no pedal edema Neuro: COMMON NORMALS: patient oriented x3 and moves all extremities S ENSORIUM/ORIENTATION: Yes alert Skin: COMMON NORMALS: no rashes or lesions noted GENERAL SKIN EXAM: no rashes or lesions noted Data 10/28/24 04:39 10/28/24 04:39 Micro: Microbiology 10/26/24 22:30 Gram Stain - Final Sputum - Expectorated Sputum Sputum Culture - Preliminary 10/26/24 17:23 Blood Culture - Preliminary Blood NEGATIVE TO DATE 10/26/24 17:23 Blood Culture - Preliminary Blood NEGATIVE TO DATE A&P Assessment and plan (1) Acute respiratory failure with hypoxia: At rest he is improving, weaning down to 1 L nasal cannula oxygen. Generally weak, still with significant malaise. With exertion he gets extremely fatigued, and out of breath. Continue treatment of severe influenza. Continue Tamiflu. He is on Solu-Medrol as well, will continue for now. Decrease to 20 mg. Monitor for risk of encephalopathy, myopathy, hyperglycemia, hypertension with IV steroid. Reviewed vitals, CBC, chemistry. Repeat CBC. Oxygen support as needed. Wean down as tolerating. Discussed with nursing, respite therapist, rehabilitation case coordinator. In setting of COPD exacerbation from influenza A. Cannot rule out superadded bacterial infection. Supplementation keeping saturation over 90%. Wean oxygen accordingly. Continue with treatment for community-acquired pneumonia with IV ceftriaxone and oral azithromycin. MRSA swab negative. Follow-up blood culture, sputum culture. (2) COPD (chronic obstructive pulmonary disease): Emphysema. Seen on CT scan. Continue breathing treatments. Decrease Solu- Medrol dose. Continue empiric ceftriaxone. Reviewed blood culture. Sputum culture. Oxygen supplementation keeping saturation 90%. Ipratropium, Xopenex every 4-hour, Pulmicort twice daily. (3) Influenza: Supportive treatment. Continue Tamiflu. Incentive spirometry. Out of bed to chair. (4) Sepsis: SIRS: Tachycardic, Febrile, tachypneic Source: Pneumonia End organ damage: Acute respiratory failure Appreciate lactate. Patient is eating well. Discontinue IV fluids. Monitor blood pressures. Keep mean artery pressure 65 mmHg. Follow-up blood culture, urine culture. Negative MRSA swab, appreciate trend procalcitonin, negative bacterial antigen. (5) Hyponatremia: Resolved. Plan Chronic smoker: Continue to encourage cessation. CODE STATUS: Discussed today with the patient. Full code. Patient's friend Johanne will be the DPOA Regular diet Protonix OPD prophylaxis Heparin 5000 every 12 hourly for DVT prophylaxis. Attestations 2 Medical Necessity Statement*: Continue admission for assessment management of severe influenza A infection, COPD exacerbation. and High MDM includes amount and/or complexity of data reviewed/ordered [ resulted lab(s)/test(s), ordered lab(s)/test(s) and other healthcare professional discussion] and described risk of complication, morbidity or mortality of management as documented Diagnoses Acute respiratory failure with hypoxia J96.01 COPD (chronic obstructive pulmonary disease) J44.9 Influenza J11.1 Sepsis A41.9 Hyponatremia E87.1
[2024-10-29] VITALS (12 sets, daily range): BP systolic 134–145; BP diastolic 81–93; PULSE 71–108; RESP 15–20; TEMP 36.3–36.7; O2SAT 91–97
[2024-10-29] MEDS: levalbuterol 0.63 mg/3 mL Neb INHALATION ×6 (01:06→22:00)
[2024-10-29] MEDS: ipratropium 0.5 mg/2.5 mL Neb INHALATION ×6 (01:06→22:00)
[2024-10-29] MEDS: methylPREDNISolone sod succ 40 mg/mL INJ 20 MG IVP ×4 (03:04→20:18)
[2024-10-29 05:47] LABS: Basophils % 0.1 %; Hematocrit 42.2 % (37-53); Lymphocytes # 0.6 10^3/uL (0.8-4.8); Lymphocytes % 7.5 %; Mean Corpuscular HGB Conc 31.5 g/dL (30-55); Mean Corpuscular Hemoglobin 28.6 pg (27-33); Mean Corpuscular Volume 90.8 fl (82-101); Monocytes # 0.3 10^3/uL (0.2-0.9); Monocytes % 3.5 %; Neutrophils # 6.56 10^3/uL (1.8-7.7); Neutrophils % 88.1 %; Nucleated Red Blood Cells % 0 %; Platelet Count 195 10^3/cmm (157-399); Red Blood Count 4.65 10^6/uL (3.85-5.65); Red Cell Distribution Width 13.7 % (12.1-15.1); White Blood Count 7.45 10^3/uL (3.29-11.43)
[2024-10-29 06:15] LABS: Anion Gap 13.8 (5-19); Blood Urea Nitrogen 30 mg/dL (8-23); Carbon Dioxide 31 mmol/L (22-29); Chloride 103 mmol/L (98-107); Creatinine Clr Calc Pharmacy 68.9382; Glomerular Filtration Rate 112.8 mL/min (90-130); Glucose 134 mg/dL (65-115); Osmolality Calculated 304 mOsm/kg (285-295); Potassium 4.8 mmol/L (3.5-5.1); Sodium 143 mmol/L (136-145)
[2024-10-29 06:37] LABS: Slide Review Slide Review Perform
[2024-10-29] MEDS: budesonide 0.5 mg/2 mL Neb INHALATION ×2 (07:21→22:00)
[2024-10-29] MEDS: nicotine 14 mg Patch 1 PATCH TRANSDERMA (08:58)
[2024-10-29] MEDS: oseltamivir phosphate 75 mg Capsule PO ×2 (08:59→17:22)
--- NOTE | 2024-10-29 09:07 | PC.CHAP ---
Pastoral Care Encounter/Spiritual Assessment Type of Contact [] Declined massotherapist visit [] Patient/Family/Request visit [] Outpatient visit [] Follow-up visit [] Physician referral [] Code/Alert [] Routine visit [] Staff referral [] Actively dying [] Patient sleeping [] Family support [] [] Out of room [] Palliative care [] [] Receiving care in room [] Pre-surgical visit [] Trauma [] Long length of stay [] ICU visit [x] Other:Contact precautions. No visit. Relational/Emotional Strength [] Patient feels connected with others/family/visitors/staff [] Distress [] Loneliness/isolation [] Abandonment Spirituality of Patient [] Person of Kaylin [] Attends Baptism of their [place] [] Believes in Prayer [] Reads Bible or Baptist materials [] There are Spiritual issues to be addressed [employer] Interventions [] Prayer [] Active listening [] Non-anxious presence [] Spiritual/emotional support [] Crisis/trauma care [] Spiritual counseling [] Bereavement support [] Provided bereavement packet [] Provided Bible/devotional materials [] Provided toy/stuffed animal, coloring book to patient or family member [] Provided Communion [] Anointing/[place] [] Salvation [] Completed spiritual assessment [] Other: Impact on Illness or Injury [] Angry [] Fearful [] Anxious [] Often cries [] Exhaustion [] Unable to work [] Unable to attend scientology [] Unable to walk/stand [] Unable to read [] Unable to drive [] Unable to eat/drink [] Unable to sleep [] Unable to be with family [] Patient intubated [] Other: Summary Time spent with patient
[2024-10-29] MEDS: cefTRIAXone 1,000 mg SDV 1000 MG IVP (17:19)
--- NOTE | 2024-10-29 19:51 | XRR_ITS ---
PROCEDURE INFORMATION: Exam: XR Chest Exam date and time: 10/29/2024 8:06 PM Age: 64 years old Clinical indication: Cough; Additional info: Cough, phlegm production, influenza, assess for secondary pn TECHNIQUE: Imaging protocol: Radiologic exam of the chest. Views: 1 view. COMPARISON: CT angio chest PE protcl [id number] 10/26/2024 3:41 PM FINDINGS: Lungs: Left lung bulla. Emphysematous changes. Increased lung volumes. No lobar consolidation. Perihilar scarring or atelectasis. Pleural spaces: Unremarkable. No pleural effusion. No pneumothorax. Heart/Mediastinum: Bilateral hilar nodes. Bones/joints: Unremarkable. XR/XR chest 1V portable [id number] IMPRESSION: As above.
--- NOTE | 2024-10-29 19:51 | PM.PN ---
Subjective Subjective: He is feeling generally very weak, particular with exertion. He is coughing, and states having quite a bit of chest congestion. General malaise is better compared to yesterday. Vitals/I&O/Wt Last Vital Signs Temp 97.9 F 10/29/24 16:00 Pulse 99 10/29/24 16:00 Resp 17 10/29/24 16:00 BP 145/92 10/29/24 16:00 Pulse Ox 91 10/29/24 16:00 O2 Del Method Room Air 10/29/24 16:00 O2 Flow Rate 1 10/29/24 04:00 10/29/24 10/29/24 10/29/24 06:59 14:59 22:59 Intake Total 120 / 480 240 / 240 240 / 480 Output Total 300 / 850 Balance -180 / -370 240 / 240 240 / 480 Weight last 48 hrs Weight 53.66 kg Weight 53.66 kg Weight 53.609 kg Weight 52.98 kg Physical Exam Narrative: Generally weak. Malaise. Const: COMMON NORMALS: patient oriented x3 and alert GENERAL APPEARANCE: cooperative ORIENTATION/CONSCIOUSNESS: Yes awake HENMT: COMMON NORMALS: oropharynx normal Neck/C-Spine: COMMON NORMALS: no JVD Resp: COMMON NORMALS: normal respiratory effort and clear to auscultation bilaterally AUSCULTATION: clear to auscultation bilaterally Cardio: COMMON NORMALS: no JVD, regular rhythm, S1 normal heart sound present, S2 normal heart sound present and No murmurs present (Cardio) RHYTHM: regular rhythm HEART SOUNDS: S1 normal heart sound present and S2 normal heart sound present GI: COMMON NORMALS: Normal to inspection, nondistended, normoactive bowel sounds present, Soft to palpation and non-tender PALPATION: Yes Soft to palpation Extremity: COMMON NORMALS: no joint enlargement and no pedal edema Neuro: COMMON NORMALS: patient oriented x3 and moves all extremities SENSORIUM/ORIENTATION: Yes alert Skin: COMMON NORMALS: no rashes or lesions noted GENERAL SKIN EXAM: no rashes or lesions noted Data 10/29/24 04:55 10/29/24 04:55 Micro: Microbiology 10/26/24 22:30 Gram Stain - Final Sputum - Expectorated Sputum Sputum Culture - Final A&P Assessment and plan (1) Acute respiratory failure with hypoxia: Resolved respiratory failure. He is down to room air. States is feeling weak, with poor exertional tolerance. He does not feel ready to return home today. Requesting PT evaluation. Continue Tamiflu treatment. Treat COPD exacerbation. Additionally with chest congestion, productive cough. Will reassess with chest x-ray for any secondary bacterial pneumonia. Discussed with nursing, case making machine operator, physical therapist. Reviewed vitals, CBC, BMP. Sputum culture, blood culture. Continue treatment of severe influenza. Continue Tamiflu. He is on Solu-Medrol as well, will continue for now. Decrease to 20 mg. Monitor for risk of encephalopathy, myopathy, hyperglycemia, hypertension with IV steroid. Reviewed vitals, CBC, chemistry. Repeat CBC. Oxygen support as needed. Wean down as tolerating. Discussed with nursing, respite therapist, case making machine operator. In setting of COPD exacerbation from influenza A. Cannot rule out superadded bacterial infection. Supplementation keeping saturation over 90%. Wean oxygen accordingly. Continue with treatment for community-acquired pneumonia with IV ceftriaxone and oral azithromycin. MRSA swab negative. Follow-up blood culture, sputum culture. (2) COPD (chronic obstructive pulmonary disease): Sputum culture on review with moderate normal augie. Blood culture remaining negative. Repeat chest x-ray as above. Add flutter valve. Emphysema. Seen on CT scan. Continue breathing treatments. Decrease Solu-Medrol dose. Continue empiric ceftriaxone. Reviewed blood culture. Sputum culture. Oxygen supplementation keeping saturation 90%. Ipratropium, Xopenex every 4-hour, Pulmicort twice daily. (3) Influenza: Supportive treatment. Continue Tamiflu. Incentive spirometry. Out of bed to chair. (4) Sepsis: Resolved SIRS: Tachycardic, Febrile, tachypneic Source: Pneumonia End organ damage: Acute respiratory failure Appreciate lactate. Patient is eating well. Discontinue IV fluids. Monitor blood pressures. Keep mean artery pressure 65 mmHg. Follow-up blood culture, urine culture. Negative MRSA swab, appreciate trend procalcitonin, negative bacterial antigen. (5) Hyponatremia: Resolved. Plan Chronic smoker: Continue to encourage cessation. CODE STATUS: Discussed today with the patient. Full code. Patient's friend Johanne will be the DPOA Regular diet Protonix OPD prophylaxis Heparin 5000 every 12 hourly for DVT prophylaxis. Attestations Medical Necessity Statement*: Continue hospitalization for severe influenza A infection with COPD exacerbation, post discharge planning and arrangements. and High MDM includes amount and/or complexity of data reviewed/ordered [ resulted lab(s)/test(s), ordered lab(s)/test(s) and other healthcare professional discussion] and described risk of complication, morbidity or mortality of management as documented Diagnoses Acute respiratory failure with hypoxia J96.01 COPD (chronic obstructive pulmonary disease) J44.9 Influenza J11.1 Sepsis A41.9 Hyponatremia E87.1
[2024-10-29] MEDS: pantoprazole 40 mg SDV IVP (20:19)
[2024-10-30] VITALS (10 sets, daily range): BP systolic 131–158; BP diastolic 79–92; PULSE 66–93; RESP 15–22; TEMP 36.4–36.8; O2SAT 90–95
[2024-10-30] MEDS: levalbuterol 0.63 mg/3 mL Neb INHALATION ×4 (01:37→11:25)
[2024-10-30] MEDS: ipratropium 0.5 mg/2.5 mL Neb INHALATION ×4 (01:37→11:25)
[2024-10-30 06:20] LABS: Hematocrit 40.1 % (37-53); Mean Corpuscular HGB Conc 32.2 g/dL (30-55); Mean Corpuscular Hemoglobin 28.7 pg (27-33); Mean Corpuscular Volume 89.3 fl (82-101); Mean Platelet Volume 10.8 fL (7.4-10.4); Platelet Count 211 10^3/cmm (157-399); Red Blood Count 4.49 10^6/uL (3.85-5.65); Red Cell Distribution Width 13.8 % (12.1-15.1)
[2024-10-30 06:31] LABS: Anion Gap 11.5 (5-19); Blood Urea Nitrogen 30 mg/dL (8-23); Carbon Dioxide 34 mmol/L (22-29); Chloride 100 mmol/L (98-107); Creatinine Clr Calc Pharmacy 68.9382; Glomerular Filtration Rate 134.8 mL/min (90-130); Glucose 123 mg/dL (65-115); Osmolality Calculated 300 mOsm/kg (285-295); Potassium 4.5 mmol/L (3.5-5.1); Sodium 141 mmol/L (136-145)
[2024-10-30 07:13] LABS: Slide Review Slide Review Perform
[2024-10-30 07:14] LABS: Absolute Neutrophil 6.8 10^3/cmm (1.4-6.5); Absolute Segmented Neutrophil 6.8 10/cmm (1.6-7.1); Eosinophils 0 %; Lymphocytes 10 %; Platelet Estimate Normal (Normal); Segmented Neutrophils 87 %; Total Cells Counted 100 (0-100)
[2024-10-30] MEDS: budesonide 0.5 mg/2 mL Neb INHALATION (07:35)
[2024-10-30] MEDS: oseltamivir phosphate 75 mg Capsule PO ×2 (09:16→14:24)
[2024-10-30] MEDS: nicotine 14 mg Patch 1 PATCH TRANSDERMA (09:16)
[2024-10-30] MEDS: methylPREDNISolone sod succ 40 mg/mL INJ 20 MG IVP ×2 (09:17→14:24)
--- NOTE | 2024-10-30 10:32 | PC.SOCIAL ---
IMM Update Pg. 2 of IMM updated. Initialed, dated, and timed, copy placed in chart. Copy provided at bedside.
[2024-10-30] MEDS: cefdinir 300 MG CAPSULE PO (14:24)
--- NOTE | 2024-10-30 20:11 | PM.DCS ---
Discharge Providers Date of Admission: 10/26/24 17:11 Date of Discharge: October 30, 2024 Attending Provider at Admission: Naa Walker MD Attending Provider at Discharge: Dav Spencer Primary Care Provider: FELICITA Flannery Diagnoses at Discharge Discharge Diagnosis (1) Acute respiratory failure with hypoxia: Status: Acute (2) COPD (chronic obstructive pulmonary disease): Status: Acute (3) Influenza: Status: Acute (4) Sepsis: Status: Acute (5) Hyponatremia: Status: Acute Reason for Visit Reason for Visit: sob Hospital Course Hospital Course Pleasant 64-year-old gentleman with history of COPD, chronic smoker, was admitted due to difficulty breathing, generalized weakness, sepsis, was found to have severe influenza A infection, COPD exacerbation, was treated with Tamiflu, Solu-Medrol, breathing treatments, empirically received ceftriaxone. Received oxygen support initially, but weaned off to room air. With generalized weakness, chest congestion, limited exertional tolerance continued on therapies on inpatient basis. Sepsis resolved. Initially severe exertional intolerance. Today he is feeling overall better. Malaise has significantly improved. Continues to do well on room air. Still coughing, bringing up phlegm. Discussed with him decongestant strategies. He is otherwise feeling well enough for discharge to complete as per discussion with him of course of Tamiflu, prednisone, cefdinir, continue flutter valve and incentive spirometer. He knows to follow-up for reassessment and seek medical attention in case of any worsening or new concerning symptoms. Physical Exam Narrative: Malaise has resolved. He is getting somewhat stronger. Sitting up at the edge of the bed. Has gotten up. Const: COMMON NORMALS: patient oriented x3 and alert GENERAL APPEARANCE: cooperative ORIENTATION/CONSCIOUSNESS: Yes awake HENMT: COMMON NORMALS: oropharynx normal Neck/C-Spine: COMMON NORMALS: no JVD Resp: COMMON NORMALS: normal respiratory effort OTHER: Minimal wheeze right lung. Cardio: COMMON NORMALS: no JVD, regular rhythm, S1 normal heart sound present, S2 normal heart sound present and No murmurs present (Cardio) RHYTHM: regular rhythm HEART SOUNDS: S1 normal heart sound present and S2 normal heart sound present GI: COMMON NORMALS: Normal to inspection, nondistended, normoactive bowel sounds present, Soft to palpation and non-tender PALPATION: Yes Soft to palpation Extremity: COMMON NORMALS: no joint enlargement and no pedal edema Neuro: COMMON NORMALS: patient oriented x3 and moves all extremities SENSORIUM/ORIENTATION: Yes alert Skin: COMMON NORMALS: no rashes or lesions noted GENERAL SKIN EXAM: no rashes or lesions noted Discharge Data Studies Completed and Pending Completed Studies During Hospitalization Category Date Time Status CTA chest [CT angio chest PE protcl [id number]] Stat Cat Scan 10/26/24 15:26 Completed CXRP [XR chest 1V portable [id number]] Routine Exams 10/29/24 19:51 Completed XR chest 1V portable [id number] Stat Exams 10/26/24 14:26 Completed Pending at discharge Category Date Time Status Blood Culture Stat Lab 10/26/24 17:23 Results Radiology Impressions Chest CTA 10/26/24 15:26 IMPRESSION: 1. No pulmonary embolism. 2. Bilateral bronchial and pulmonary abnormalities described above are consistent with infectious bronchiolitis. 3. Moderate centrilobular emphysema. 4. Multiple bilateral pulmonary nodules measuring 3-6 mm. Probable inflammatory nodules. Many of these are new since 03/07/2022. Fleischner Society follow up recommendations for incidental nodules are not indicated. Follow up per the patient's medical condition. 5. Indeterminate left adrenal nodule is stable since 03/07/2022. COMMENTS: The presence of pulmonary emphysema on CT is an independent risk factor for lung cancer. In the absence of a history or active diagnosis of lung cancer, it is recommended that this patient with emphysema be evaluated for enrollment in a low dose CT lung cancer screening program. REFERENCES: Jen Chowdary, et al. Guidelines for Management of Incidental Pulmonary Nodules Detected on CT Images: From the Fleischner Society 2017. Radiology. 2017;284(1):228-243. Chest X-Ray 10/29/24 19:51 IMPRESSION: As above. Laboratory Results WBC 7.80 10^3/uL (3.29-11.43) 10/30/24 05:26 RBC 4.49 10^6/uL (3.85-5.65) 10/30/24 05:26 Hgb 12.90 g/dL (11.27-16.99) 10/30/24 05:26 Hct 40.1 % (37-53) 10/30/24 05:26 MCV 89.3 fl (82-101) 10/30/24 05:26 MCH 28.7 pg (27-33) 10/30/24 05:26 MCHC 32.2 g/dL (30-55) 10/30/24 05:26 RDW 13.8 % (12.1-15.1) 10/30/24 05:26 Plt Count 211 10^3/cmm (157-399) 10/30/24 05:26 MPV 10.8 fL (7.4-10.4) H 10/30/24 05:26 Neut % (Auto) 88.1 % 10/29/24 04:55 Lymph % (Auto) Not Reportable 10/30/24 05:26 [place] % (Auto) Not Reportable 10/30/24 05:26 Eos % (Auto) 0.0 % 10/29/24 04:55 Baso % (Auto) 0.1 % 10/29/24 04:55 Neut # (Auto) 6.56 10^3/uL (1.8-7.7) 10/29/24 04:55 Lymph # (Auto) Not Reportable 10/30/24 05:26 [place] # (Auto) Not Reportable 10/30/24 05:26 Eos # (Auto) 0.0 10^3/uL (0.0-0.8) 10/29/24 04:55 Baso # (Auto) 0.0 10^3/uL (0.0-0.1) 10/29/24 04:55 Nucleated RBC % (auto) 0 % 10/29/24 04:55 Total Counted 100 (0-100) 10/30/24 05:26 Atypical Lymphs % 3.0 % (0-5) 10/30/24 05:26 Absolute Neutrophils 6.8 10^3/cmm (1.4-6.5) H 10/30/24 05:26 Segmented Neutrophils 87 % 10/30/24 05:26 Band Neutrophils 0.0 % 10/30/24 05:26 Absolute Lymphocytes 1.0 10^3/cmm (1.2-3.4) L 10/30/24 05:26 Lymphocytes (Manual) 10 % 10/30/24 05:26 Monocytes (Manual) 0.0 % 10/30/24 05:26 Absolute Monocytes 0.0 10^3/cmm (0.1-0.6) L 10/30/24 05:26 Eosinophils (Manual) 0 % 10/30/24 05:26 Absolute Eosinophils 0.0 10^3/cmm (0.0-0.7) 10/30/24 05:26 Basophils (Manual) 0.0 % 10/30/24 05:26 Absolute Basophils 0.0 10^3/cmm (0.0-0.2) 10/30/24 05:26 Nucleated RBCs # 0.0 /100WBC 10/29/24 04:55 Platelet Estimate Normal (Normal) 10/30/24 05:26 PT 12.70 SECONDS (12.1-14.9) 10/26/24 14:12 INR 0.93 (0.8-1.2) 10/26/24 14:12 Specimen Type Arterial 10/26/24 14:37 Sample Site Radial, left 10/26/24 14:37 ABG pH 7.36 (7.35-7.45) 10/26/24 14:37 ABG pCO2 52.3 mmHg (35-45) H 10/26/24 14:37 ABG pO2 77.4 mmHg (80.0-100.0) L 10/26/24 14:37 ABG PO2/FiO2 Ratio 241 10/26/24 14:37 ABG HCO3 29.2 mmol/L (22-26) H 10/26/24 14:37 ABG Base Excess 2.4 mmol/L (-2.0-2.0) H 10/26/24 14:37 [place] Test Pos 10/26/24 14:37 Hematocrit 48.5 % (42-52) 10/26/24 14:37 Hgb O2 Saturation 92.7 % (95-100) L 10/26/24 14:37 Carboxyhemoglobin < 0.3 %THgb (0.4-20.1) L 10/26/24 14:37 Methemoglobin 1.1 % (0.4-1.5) 10/26/24 14:37 Total Hemoglobin 15.8 g/dL (14-18) 10/26/24 14:37 O2 Delivery Device Nc 10/26/24 14:37 O2 Liters/Min 3.0 % 10/26/24 14:37 FiO2 32.0 % 10/26/24 14:37 [employer] Technical Officer ID Cak 10/26/24 14:37 Sodium 141 mmol/L (136-145) 10/30/24 05:26 Potassium 4.5 mmol/L (3.5-5.1) 10/30/24 05:26 Chloride 100 mmol/L (98-107) 10/30/24 05:26 Carbon Dioxide 34 mmol/L (22-29) H 10/30/24 05:26 Anion Gap 11.5 (5-19) 10/30/24 05:26 BUN 30 mg/dL (8-23) H 10/30/24 05:26 Creatinine 0.6 mg/dL (0.7-1.2) L 10/30/24 05:26 GFR Calculation 134.8 mL/min (90-130) H 10/30/24 05:26 Glucose 123 mg/dL (65-115) H 10/30/24 05:26 POC Glucose 124 mg/dL (70-110) H 10/27/24 06:07 Estimat Average Glucose 123 10/27/24 05:03 Hemoglobin A1c 5.9 % (4.0-6.0) 10/27/24 05:03 Calculated Osmolality 300 mOsm/kg (285-295) H 10/30/24 05:26 Lactic Acid 1.6 mmol/L (0.5-2.2) 10/26/24 14:12 Calcium 9.0 mg/dL (8.5-10.5) 10/30/24 05:26 Phosphorus 3.8 mg/dL (2.5-4.5) 10/27/24 05:03 Magnesium 2.3 mg/dL (1.7-2.3) 10/27/24 05:03 Iron 20 ug/dL (59-158) L 10/26/24 14:12 TIBC 271 mcg/dl 10/26/24 14:12 % Saturation 7.3 % (20-50) L 10/26/24 14:12 Unsat Iron Binding 251 ug/dL (112-347) 10/26/24 14:12 Total Bilirubin 0.2 mg/dL (0.15-1.2) 10/28/24 04:39 AST 20 U/L (0-40) 10/28/24 04:39 ALT 15 U/L (0-41) 10/28/24 04:39 Alkaline Phosphatase 49 U/L (40-130) 10/28/24 04:39 NT-Pro-B Natriuret Pep 1125 pg/mL (0-125) H 10/26/24 14:12 Total Protein 6.6 g/dL (6.6-8.7) 10/28/24 04:39 Albumin 3.3 g/dL (3.5-5.2) L 10/28/24 04:39 Globulin 3.3 g/dL (1.3-4.6) 10/28/24 04:39 Triglycerides 77 mg/dL (0-150) 10/27/24 05:03 Cholesterol 159 mg/dL (0-200) 10/27/24 05:03 LDL Cholesterol, Calc 93 mg/dL (50-129) 10/27/24 05:03 HDL Cholesterol 51 mg/dL (60-100) L 10/27/24 05:03 LDL/HDL Ratio 1.82 RATIO (0.00-3.22) 10/27/24 05:03 Cholesterol/HDL Ratio 3.12 mg/dL (1.0-5.00) 10/27/24 05:03 Vitamin B12 990 pg/mL (232-1245) 10/26/24 14:12 Folate 16.2 ng/mL (4.5-32.2) 10/27/24 05:03 Procalcitonin 0.65 ng/mL (0-0.5) H 10/27/24 05:03 TSH 4.22 uIU/mL (0.27-4.20) H 10/26/24 14:12 Urine Color Dark yellow (Yellow) A 10/26/24 15:24 Urine Appearance Turbid (CLEAR) A 10/26/24 15:24 Urine pH 5.5 (5-7) 10/26/24 15:24 Ur Specific [place] 1.033 (1.005-1.030) H 10/26/24 15:24 Urine Protein 2+ (Negative) A 10/26/24 15:24 Urine Glucose (UA) Negative (Normal) 10/26/24 15:24 Urine Ketones Negative (Negative) 10/26/24 15:24 Urine Blood 2+ (Negative) A 10/26/24 15:24 Urine Nitrate Negative (Negative) 10/26/24 15:24 Urine Bilirubin Negative (Negative) 10/26/24 15:24 Urine Urobilinogen 1.0 mg/dL (Negative) 10/26/24 15:24 Ur Leukocyte Esterase Negative (Negative) 10/26/24 15:24 Urine RBC 0-4 /hpf (0-2) H 10/26/24 15:24 Urine WBC 0-5 /hpf (0-5) 10/26/24 15:24 Ur Squamous Epith Cells 0-5 /hpf (0-5) 10/26/24 15:24 Amorphous Sediment 4+ /hpf 10/26/24 15:24 Urine Bacteria None seen /hpf (NONE) 10/26/24 15:24 Hyaline Casts 29.34 /lpf 10/26/24 15:24 Nasal MRSA (PCR) Not detected (Negative) 10/26/24 22:30 Coronavirus (PCR) Negative (Negative) 10/26/24 15:27 Influenza A (PCR) Positive (Negative) 10/26/24 15:27 Influenza Type B (PCR) Negative (Negative) 10/26/24 15:27 RSV (PCR) Negative (Negative) 10/26/24 15:27 Vitals Last Vital Signs Temp 98.0 F 10/30/24 16:51 Pulse 93 10/30/24 16:51 Resp 15 10/30/24 16:51 BP 139/92 10/30/24 16:51 Pulse Ox 93 10/30/24 16:51 O2 Del Method Room Air 10/30/24 12:00 O2 Flow Rate 1 10/29/24 04:00 Discharge Plan Discharge Patient Disposition: Home Condition: Stable Prescriptions: New nicotine 14 mg/24 hr Patch 24 Hour 1 patch transdermal DAILY Qty: 90 0RF oseltamivir 75 mg Capsule 75 mg PO BID Qty: 3 0RF cefdinir 300 mg capsule 300 mg PO BID 5 Days Qty: 10 0RF prednisone 20 mg tablet 20 mg PO DAILY 3 Days Qty: 3 0RF guaifenesin 400 mg tablet 400 mg PO TID PRN (Reason: congestion) Qty: 30 0RF Continued acetaminophen 325 mg Tablet 325 mg PO QID PRN (Reason: Pain) fluticasone propion-salmeterol [Advair HFA] 230-21 mcg/actuation HFA aerosol inhaler 1 puff INHALATION BID omeprazole 40 mg Capsule,Delayed Release(Dr/Ec) 40 mg PO DAILY albuterol sulfate 90 mcg/actuation Hfa Aerosol Inhaler 2 puff INHALATION Q4H PRN (Reason: Shortness Of Breath) Discharge Orders: Discharge Order (Routine); Ordered 10/30/24 Ordered By: Dav Spencer Referrals: Alexa Carreno FNP [Primary Care Provider] - 4-7 days (We have notified your physician's clinic of the need for a follow-up appointment to be scheduled. If you have not heard from them within the next 2 business days, please call them directly. ) Discharge Activity: As per PT/OT instructions Patient Instructions: Prednisone (By mouth), Oseltamivir (By mouth), Cefdinir (By mouth), Influenza (GEN), COPD (Chronic Obstructive Pulmonary Disease) (GEN), COPD Stoplight, Opioid Safety, Pain Management Activity Restrictions/Additional Instructions: Please complete antibiotic course with cefdinir, prednisone for COPD exacerbation. Complete Tamiflu for influenza infection. Continue incentive spirometer, flutter valve at home as discussed. Follow-up with your primary doctor for reassessment of recovery after influenza infection, COPD exacerbation. Please avoid smoking if possible at least while recovering, and attempt to quit smoking long-term. Seek medical attention in case of any worsening or new concerning symptoms. Discharge Attestations Time Spent in Discharge Care*: greater than 30 min Quality Metrics Clinical Quality Measures [ No reported AMI, CVA or VTE this stay] Coding Level of Care Code 12902 Total time (in minutes) for Discharge: 40 Diagnoses Acute respiratory failure with hypoxia J96.01 COPD (chronic obstructive pulmonary disease) J44.9 Influenza J11.1 Sepsis A41.9 Hyponatremia E87.1
== END 2024-10-30 15:15 | disposition home or self-care (01) | DRG 871 ==
LOC: ER 17:10 → CSU 17:57 → MEDSURG 10-27 13:13
PROVIDERS: Student in an Organized Health Care Education/Training Program; Admitting Provider Student in an Organized Health Care Education/Training Program; Emergency Provider Emergency Medicine; PCP Nurse Practitioner Family; Visit Provider Internal Medicine
DX: A41.9 Sepsis, unspecified organism (principal); J10.00 Influenza due to other identified influenza virus with unspecified type of pneumonia; J96.01 Acute respiratory failure with hypoxia; J44.1 Chronic obstructive pulmonary disease with (acute) exacerbation; J44.0 Chronic obstructive pulmonary disease with (acute) lower respiratory infection; E87.1 Hypo-osmolality and hyponatremia; R64 Cachexia; Z68.1 Body mass index [BMI] 19.9 or less, adult; R65.20 Severe sepsis without septic shock; J43.9 Emphysema, unspecified; E86.0 Dehydration; F17.200 Nicotine dependence, unspecified, uncomplicated; Z11.52 Encounter for screening for COVID-19; Z79.51 Long term (current) use of inhaled steroids; Z86.73 Personal history of transient ischemic attack (TIA), and cerebral infarction without residual deficits
CPT/HCPCS: 36415; 36416; 36600; 71045; 71275; 80048; 80053; 80061; 81001; 82607; 82746; 82805; 82962; 83036; 83540; 83550; 83605; 83735; 83880; 84100; 84145; 84443; 85007; 85025; 85610; 86403; 87040; 87070; 87205; 87637; 93005; 94640; 94760; 96374; 97110; 97161; 99239; 99285; A9270; J0696; J2470; J2919; J7030; J7040; J7614; J7626; J7644